=== PATIENT | female | born 1960 ===

== ENCOUNTER 2024-10-25 18:01 | Inpatient (IN) | payer MEDICARE, MEDICAID, SELFPAY ==
--- OUTSIDE RECORDS SUMMARY | 2024-10-25 18:20 | XMS_ITS | Encounter Summary ---
Author Organization [employer] Address [address] [place] [address] Care Team Providers Care [facility]man Name Role Phone Kaylee Hyde MD Primary Care Provider [phone] Reason for Visit * Reason Comments Altered Mental Status Encounter Details Date Type Department Care Team (Late st Contact Info) Description 10/25/2024 10:22 AM EDT - 10/25/2024 5:40 PM EDT Emergency [facility] Emergency [address] [place] [id number] Felipa Martinez, [address] [place] [address] Alexei Rodriguez MD [address] [place] [address] Altered mental status, unspecified altered mental status type (Primary Dx); Delusions (CMS/HCC); Psychiatric complaint Discharge Disposition: Another Health Care Institution Not Defined Social History Tobacco Use Types Packs/Day Years Used Date Smoking Tobacco: Never Assessed Comments Unknown Sex and Gender Information Value Date Recorded Sex Assigned at Female 10/25/2024 11:00 AM EDT Legal Sex Female 9:03 AM EST Gender Identity Female 10/25/2024 11:00 AM EDT Sexual Orientation Straight 10/25/2024 11 :00 AM EDT documented as of this encounter Last Filed Vital Signs Vital Sign Reading Time Taken Comments Blood Pressure 154/98 10/25/2024 5:39 PM EDT Pulse 105 10/25/2024 5:39 PM EDT Temperature 36.5 ??C (97.7 ??F) 10/25/2024 10:55 AM E DT Respiratory Rate 18 10/25/2024 5:39 PM EDT Oxygen Saturation 100% 10/25/2024 5:39 PM EDT Inhaled Oxygen Concentration - - Weight 65.8 kg (145 lb) 10/25/2024 10:55 AM EDT Height 144.8 cm (4' 9 ) 10/25/2024 10:55 AM EDT Body Mass Index 31.38 10/25/2024 10:55 AM EDT documented in this encounter Functional Status * Are you deaf or do you have serious difficulty hearing? Answer Date of Assessment Author No 10/25/2024 10:32 AM EDT David Rodriguez RN * Are you blind or do you have serious difficulty seeing, even when wearing glasses? Answer Date of Assessment Author No 10/25/2024 10:32 AM EDT David Rodriguez RN * Do you have serious difficulty walking or climbing stairs? Answer Date of Assessment Author No 10/25/2024 10:32 AM PRABHAKART David Rodriguez RN * Do you have serious difficulty dressing or bathing? Answer Date of Assessment Author No 10/25/2024 10:32 AM EDT David Rodriguez RN * Because of a physical, mental, or emotional condition, do you have serious difficulty doing errandsalone such as visiting the doctor? Answer Date of Assessment Author No 10/25/2024 10:32 AM David Cardenas RN documented as of this encounter Mental Status * Because of a physical, mental, or emotional condition, do you have serious difficulty concentrating, remembering, or making decisions? (5 years old or older) Answer Entry Date Author No 10/25/2024 10:32 AM David Cardenas RN documented in this encounter Medications at Time of Discharge acetaminophen (TYLENOL) 325 mg tablet Take 1,000 mg by mouth every 8 (eight) hours if needed for mild pain or moderate pain. 06/25/2017 cholestyramine (QUESTRAN) 4 gram packet Take 1 packet (4 g total) by mouth 1 (one) time each day. 09/21/2024 clonazePAM (KlonoPIN) 0.5 mg disintegrating tablet Take 1 tablet (0.5 mg total) by mouth 2 (two) times a day. Max Daily Amount: 1 mg escitalopram (LEXAPRO) 5 mg tablet Take 1 tablet (5 mg total) by mouth 1 (one) time each day. 09/21/2024 fenofibrate (TRICOR) 48 mg tablet Take 1 tablet (48 mg total) by mouth 1 (one) time each day. 09/21/2024 OLANZapine (ZyPREXA ZYDIS) 5 mg disintegrating tablet Take 1 tablet (5 mg total) by mouth 2 (two) times a day. 09/21/2024 simvastatin (ZOCOR) 10 mg tablet Take 1 tablet (10 mg total) by mouth at bedtime. topiramate (TOPAMAX) 25 mg tablet Take 1 tablet (25 mg total) by mouth 2 (two) times a day. 09/29/2024 documented as of this encounter Discharge Disposition Disposition Code Departure Means Destination Comment s Another Health Care Institution Not Defined documented in this encounter Progress Notes * Faviola Batista RN - 10/25/2024 4:45 PM EDT Nurse to nurse report given to receiving nurse Billie with [facility] M[facility]. * Alina Oleary - 10/25/2024 4:07 PM EDT Patient accepted to [facility], unit M5, by Dr Alvaro Cage for today 10/25/24; arrival 6pm. * Alexei Rodriguez MD - 10/25/2024 3:23 PM EDT ED Course as of 10/25/24 1613 Mon Oct 25, 2024 1239 63-year-old female presented hospital today for evaluation of altered mentation. Patient was found roaming the hallway in the apartment. Patient was sent in by [facility] team on scene. Patient is currently on section. Will obtain psychiatric lab work for the patient to assess for any signs of metabolic cause of her mentation. However on my exam I suspect this is purely psychiatric in nature. Patient appears to be delusional however she does appear to be appropriate to me. Her story does not make sense. There is a lot of contradicting part in her stories. I am unsure whether her story is true or not. Will have the crisis team evaluated patient at this time. [TC] 1352 Patient CBC is unremarkable. Tylenol was negative. Patient chemistry did show mild transaminitis. Patient UA did not show any signs of UTI. Drug screen is negative. Crisis has evaluated patient and recommend admission for involuntary inpatient psychiatric care. Patient will be held here pending bed search. [TC] 1522 I, Dr. Josiah Rodriguez, have received signout for this patient from Dr. Rojas at 1500 hrs. The patientis currently pending inpatient psychiatric bed search. No issues during my shift. Anticipate sign out to Dr. Pelon Whitfield at 2300 hrs. [MG] 1612 Patient excepted to [facility] for 1800 today. [MG] ED Course User Index [MG] Alexei Rodriguez MD [TC] Felipa Martinez, DO Clinical Impressions as of 10/25/24 1613 Altered mental status, unspecified altered mental status type Delusions (CMS/HCC) Psychiatric complaint Send to Specialty Department 1. Altered mental status, unspecified altered mental status type 2. Delusions (CMS/HCC) 3. Psychiatric complaint Procedures Alicia Saleem * Faviola Batista RN - 10/25/2024 2:21 PM EDT Contacted [facility] as med rec not received, med list to be re faxed to [phone] * Bianka Villaseñor NP - 10/25/2024 1:47 PM EDT Psychiatry Initial Intake Alicia Saleem,is a 63-year-old female history of schizoaffective disorder and delusions presentedto the ER for evaluation of psychiatric evaluation. Patient is placed on section 12 by N. Patientwas found by neighbors are roaming the halls in the buildings. Patient has been intermittent confused. And rambling and not making sense. Denies SI denies HI. Patient has history of schizoaffective disorder and hyperlipidemia. On evaluation patient stated that her daughter was roaming the [place] and causing the issue it was not her. She stated she was waiting in [place] for her visiting nurse to come to give her her medications. However it is noted that patient daughter is in a psych facility at this time. Patient is anxious about her cats at home. Patient states that she does not think she needs to be here this was a misunderstanding. She is denies any SI HI or any hallucinations at this time. Patientjanes state that she does have a house outside of here she recently bought with her back in August. They are taking care of orphan kids at this house. Subjective 10/25/2024 I was outside during the night with my 11 bags of clothes and toys to wait for my and my nurse to bring to the orphans in [address] was my first house HPI: Ms Saleem reports discharge On 's Day after being in the hospital for a year. I was so happy. My daughter got so emotional that I was home she was brought to the hospital . Reports medication compliance the nurse comes I take them in the morning and the night plus the orange drink Current Medications: Scheduled Meds: Continuous Infusions: PRN Meds: Stressors: daughter psychiatrically hospitalized Past Psychiatric History: Previous therapy: yes Previous psychiatric treatment and medication trials: yes - multiple. Per EHR Depakote had been stopped due to LFT's elevation Previous psychiatric hospitalizations: yes - multiple. Most recently [facility] Previous diagnoses: yes - schizoaffective Previous suicide attempts: no History of violence: patient points to scar on left forearm that was during one of my angry spells, that was a long time ago, 24 years ago. I don't do that anymore Currently in treatment with N. Education: some high school Other pertinent history: Legal Depression screening was performed with standardized tool: Yes - No Depression Substance Abuse History: Recreational drugs: none Use of alcohol: denied Use of caffeine: denies use Tobacco use: no Legal consequences of chemical use: no Psychiatric Review Of Systems: Sleep: yes, I was up all night waiting for my Appetite changes: no Weight changes: no Energy: yes, noted wandering in hallways and in the street Interest/pleasure/anhedonia: no Somatic symptoms: no Anxiety/panic: no Guilty/hopeless: I don't want to go to the hospital again, I was there for a year. I love my home Self-injurious behavior/risky behavior: yes, per reports opening neighbor's doors. Walking in streets, telling strangers she has money to give them Any drugs: no Alcohol: no Mental Status Exam: General Observations Appearance and Build: older than stated age and unkempt Demeanor: Average Eye Contact: Average Activity: Average Speech: rapid Behavior: impulsive Mood: labile Affect: labile Thought Process: flight of ideas, loose associations, and tangential Thought Content: Delusions: bizarre and content regarding buying a home in [place] Other: ideas of reference Self Abuse: none reported Aggressive: none reported Cognition: Impairment of: attention/concentration and ability to abstract Intelligence Estimate: boarderline Sensorium/Orientation: person and place Perception: Hallucinations: none reported Other: none reported Insight/Judgment: impaired due to delusional content Elaboration of Positive Mental Status Findings: Ms Saleem with persistent/ increasing delusional content. Patient found with bags of belongings in the hallway Reports patient wandering in building opening neighbor doors. In the street various hours of the day. Physical/Somatic Complaints The patient lists: no physical complaints. Functioning in Relationships: Spouse/partner: Not Lives with daughter various reports of conflictual relationship have been presented Peers: denies Employers: denies Other Pertinent Information Per report sister has been actively seeking guardianship Lab Results: Results for orders placed or performed during the hospital encounter of 10/25/24 Drug abuse screen 8a panel, urine Collection Time: 10/25/24 10:48 AM Result Value Ref Range Amphetamine Screen, Ur Negative Negative Barbiturate Screen, Ur Negative Negative Benzodiazepine Screen, Ur Negative Negative Cocaine Screen, Ur Negative Negative Opiate Screen, Ur Negative Negative Cannabinoid (THC) Screen, Ur Negative Negative Oxycodone Screen, Ur Negative Negative Fentanyl, Ur Negative Negative Buprenorphine screen, urine Collection Time: 10/25/24 10:48 AM Result Value Ref Range Buprenorphine Screen Urine Negative Negative Phencyclidine, urine Collection Time: 10/25/24 10:48 AM Result Value Ref Range PCP Scrn, Ur Negative Negative Methadone, urine Collection Time: 10/25/24 10:48 AM Result Value Ref Range Methadone Screen, Urine Negative Negative Urinalysis with reflex microscopic and culture Collection Time: 10/25/24 10:48 AM Result Value Ref Range Specific [place] Urine 1.018 1.003 - 1.030 pH, Urine 5.5 5.5, 6.0, 6.5, 7.0 pH Leukocytes, Urine 2+ (A) Negative Nitrite, Urine Negative Negative Protein, Urine Negative mg/dL Glucose, Urine Negative mg/dL Ketones, Urine Trace mg/dL Urobilinogen, Urine 0.2 mg/dL Bilirubin, Urine Negative Negative Blood, Urine Negative Negative RBC, Urine 0.1 0 - 4 /HPF WBC, Urine 32.3 (H) 0 - 4 /HPF Squamous Epithelial, Urine 53 0 - 60 /LPF Non-Squamous Epithelial, Urine Rare Transitional epithelial cells. /LPF Bacteria, Urine Negative Negative /HPF Hyaline Casts, Urine 4.8 (H) 0 - 3 /LPF Mucus, Urine Moderate None /HPF Stone urine culture tube Collection Time: 10/25/24 10:48 AM Result Value Ref Range Extra Tube Hold for add-ons. ECG 12 lead Collection Time: 10/25/24 11:00 AM Result Value Ref Range Ventricular Rate ECG 71 BPM Atrial Rate 71 BPM P-R Interval 150 ms QRS Duration 82 ms Q-T Interval 402 ms QTc 436 ms P Wave Burnside 68 degrees R Burnside 75 degrees T Burnside 70 degrees ECG Interpretation Normal sinus rhythm Normal ECG When compared with ECG of 16-JUN-2023 19:48, No significant change was found Comprehensive metabolic panel Collection Time: 10/25/24 11:30 AM Result Value Ref Range Sodium 141 133 - 145 mmol/L Potassium 4.6 3.5 - 5.5 mmol/L Chloride 111 (H) 96 - 110 mmol/L CO2 23 21 - 32 mmol/L Anion Gap 7 3 - 11 Glucose 101 (H) 70 - 100 mg/dL BUN 15 5 - 25 mg/dL Creatinine 1.13 (H) 0.50 - 1.10 mg/dL eGFR 55 (L) >=60 mL/min/1.73m2 BUN/Creatinine Ratio 13.3 Calcium 9.7 8.5 - 10.5 mg/dL AST (SGOT) 99 (H) 10 - 42 unit/L ALT (SGPT) 89 (H) 10 - 60 unit/L Alkaline Phosphatase 144 (H) 42 - 121 unit/L Total Protein 6.8 6.0 - 8.0 g/dL Albumin 4.0 3.2 - 5.0 g/dL Total Bilirubin 0.6 0.0 - 1.4 mg/dL Ethanol Collection Time: 10/25/24 11:30 AM Result Value Ref Range Ethanol Level <3 0 - 10 mg/dL Acetaminophen level Collection Time: 10/25/24 11:30 AM Result Value Ref Range Acetaminophen Level <2.0 (L) 10.0 - 30.0 mcg/mL Salicylate level Collection Time: 10/25/24 11:30 AM Result Value Ref Range Salicylate Level <1.7 (L) 2.0 - 29.0 mg/dL CBC auto differential Collection Time: 10/25/24 11:30 AM Result Value Ref Range WBC 6.9 4.8 - 10.8 K/mcL RBC 4.20 3.80 - 4.80 M/mcL Hemoglobin 12.1 11.5 - 16.0 g/dL Hematocrit 37.7 35.0 - 47.0 % MCV 90.0 79.0 - 98.0 FL MCH 28.9 27.0 - 32.0 pcg MCHC 32.1 32.0 - 37.0 g/dL RDW 14.3 11.0 - 15.0 % Platelets 257 130 - 400 K/mcL MPV 10.4 7.0 - 11.0 FL NRBC 0.0 <1.0 % NRBC Absolute 0.00 <0.10 K/mcL Neutrophils Relative 68.2 % Lymphocytes Relative 16.4 % Monocytes Relative 9.7 % Eosinophils Relative 4.8 % Basophils Relative 0.3 % Immature Granulocytes Relative 0.6 % Neutrophils Absolute 4.69 1.50 - 7.00 K/mcL Lymphocytes Absolute 1.13 1.00 - 5.00 K/mcL Monocytes Absolute 0.67 0.20 - 1.00 K/mcL Eosinophils Absolute 0.33 0.00 - 0.50 K/mcL Basophils Absolute 0.02 0.00 - 0.20 K/mcL Immature Granulocytes Absolute 0.04 (H) 0.00 - 0.03 K/mcL Medications: No current facility-administered medications for this encounter. No current outpatient medications on file. Diagnosis/Assessment/Plan: Schizoaffective disorder Ms Saleem noted with delusional content, diminished ability to care for herself in the community, Recommendation 1) Collaborate with behavioral health team for inpatient psychiatric hospitalization for patient safety mood stabilization and medication management Bianka Kasi, MANAGER NEWS * Faviola Batista RN - 10/25/2024 1:41 PM EDT Contacted [facility] to complete med rec, med list to be faxed to [phone]. * Faviola Batista RN - 10/25/2024 1:25 PM EDT Patient does not have a per patients sister. Please see consult note for details. * Karla Rodriguez RN - 10/25/2024 11:07 AM EDT Patient states she wants no family memebers to have any information about her besides her and family welfare social work professor states ok to give info over the phone. Pt paranoid and rambling Karla Rodriguez RN 10/25/24 1108 * Karla Rodriguez RN - 10/25/2024 10:22 AM EDT Biba from home section 12 by [facility], neighbors called ems for patient roaming halls of building for 24hours. A+ox3 but intermittent confusion per ems. Rambling not making sense. Denies all complaints. Denies SI, HI Hx schizoeffective, hyperlipid * Felipa Martinez DO - 10/25/2024 10:09 AM EDT Emergency Medicine Note Patient Name: Alicia Saleem Initial Evaluation: 10/25/2024 : 1960 Patient's PCP: Kaylee Hyde MD Emergency Physician: Felipa Martinez, DO History of Present Illness Chief Complaint: Chief Complaint Patient presents with ??? Altered Mental Status HPI: This is a 63-year-old female history of delusions presented to the ER today for evaluation of psychiatric evaluation. Patient is placed on section 12 by N. Patient was found by neighbors are roaming the halls in the buildings. Patient has been intermittent confused. And rambling and not making sense. Denies SI denies HI. Patient has history of schizoaffective disorder and hyperlipidemia. On evaluation patient stated that her daughter was roaming the [place]ons[place]ves and causing the issue it was not her. She stated she was waiting a [place] for her visiting nurse to come to give her her medications.However it is noted that patient daughter is in a psych facility at this time. Patient is anxious about her cats at home. Patient states that she does not think she needs to be here dose was a misunderstanding. She is denies any SI HI or any hallucinations at this time. Patientdoes stated that she does have a house outside of here she recently bought with her back inFebruary. They are taking care of orphan kids at this house. She has no medical complaints at this time. ROS: I have performed a ROS with the pertinent positives and negatives documented in the history ofpresent illness. Previous History No past medical history on file. No past surgical history on file. No family history on file. has No Known Allergies. No current facility-administered medications on file prior to encounter. No current outpatient medications on file prior to encounter. Physical Exam ED Triage Vitals [10/25/24 1055] Temp Heart Rate Resp BP 36.5 ??C (97.7 ??F) 80 18 105/58 SpO2 Temp Source Heart Rate Source Patient Position 100 % Oral Monitor Lying BP Location FiO2 (%) Left arm -- General: Pleasant, no distress, interacting appropriately Head: Normacephalic, atraumatic ENT: oral mucosa moist, neck supple, no tracheal deviation Cardiovascular: regular rate, regular rhythm, no murmurs, rubbing, gallops Respiratory: CTAB, no wheeze, rales, rhonchi Gastrointestinal: Soft, non distended, non tender, non guarding Extremities: No limb pain or swelling, no calf tenderness Neurological: Awake and alert, no facial droop noted Skin: Warm and dry Psychiatric: Appears to have some delusions. Denies SI and HI. Unsure if the information she has provided me is accurate. However they are inconsistent with each other and does not make sense. Results Labs Reviewed COMPREHENSIVE METABOLIC PANEL - Abnormal Result Value Sodium 141 Potassium 4.6 Chloride 111 (*) CO2 23 Anion Gap 7 Glucose 101 (*) BUN 15 Creatinine 1.13 (*) eGFR 55 (*) BUN/Creatinine Ratio 13.3 Calcium 9.7 AST (SGOT) 99 (*) ALT (SGPT) 89 (*) Alkaline Phosphatase 144 (*) Total Protein 6.8 Albumin 4.0 Total Bilirubin 0.6 ACETAMINOPHEN LEVEL - Abnormal Acetaminophen Level <2.0 (*) SALICYLATE LEVEL - Abnormal Salicylate Level <1.7 (*) CBC WITH AUTO DIFFERENTIAL - Abnormal WBC 6.9 RBC 4.20 Hemoglobin 12.1 Hematocrit 37.7 MCV 90.0 MCH 28.9 MCHC 32.1 RDW 14.3 Platelets 257 MPV 10.4 NRBC 0.0 NRBC Absolute 0.00 Neutrophils Relative 68.2 Lymphocytes Relative 16.4 Monocytes Relative 9.7 Eosinophils Relative 4.8 Basophils Relative 0.3 Immature Granulocytes Relative 0.6 Neutrophils Absolute 4.69 Lymphocytes Absolute 1.13 Monocytes Absolute 0.67 Eosinophils Absolute 0.33 Basophils Absolute 0.02 Immature Granulocytes Absolute 0.04 (*) URINALYSIS WITH REFLEX MICROSCOPIC AND CULTURE - Abnormal Specific [place] Urine 1.018 pH, Urine 5.5 Leukocytes, Urine 2+ (*) Nitrite, Urine Negative Protein, Urine Negative Glucose, Urine Negative Ketones, Urine Trace Urobilinogen, Urine 0.2 Bilirubin, Urine Negative Blood, Urine Negative RBC, Urine 0.1 WBC, Urine 32.3 (*) Squamous Epithelial, Urine 53 Non-Squamous Epithelial, Urine Rare Transitional epithelial cells. Bacteria, Urine Negative Hyaline Casts, Urine 4.8 (*) Mucus, Urine Moderate ETHANOL - Normal Ethanol Level <3 DRUG ABUSE SCREEN 8A PANEL, URINE - Normal Amphetamine Screen, Ur Negative Barbiturate Screen, Ur Negative Benzodiazepine Screen, Ur Negative Cocaine Screen, Ur Negative Opiate Screen, Ur Negative Cannabinoid (THC) Screen, Ur Negative Oxycodone Screen, Ur Negative Fentanyl, Ur Negative Narrative: Assay cutoffs: Amphetamines 1000 ng/mL Barbiturates 200 ng/mL Benzodiazepines 200 ng/mL Cocaine 300 ng/mL Fentanyl 1 ng/mL Opiates 300 ng/mL Oxycodone 100 ng/mL THC 50 ng/mL Semi-quantitative assay for screening purposes only. Unconfirmed screening result should not be used for non-medical purposes. *ALTERNATE METHOD CONFIRMATION DONE UPON REQUEST ONLY* BUPRENORPHINE SCREEN, URINE - Normal Buprenorphine Screen Urine Negative Narrative: Assay cutoff 5 ng/mL Semi-quantitative assay for screening purposes only. Unconfirmed screening result should not be used for non-medical purposes. *ALTERNATE METHOD CONFIRMATION DONE UPON REQUEST ONLY* PHENCYCLIDINE, URINE - Normal PCP Scrn, Ur Negative METHADONE SCREEN, URINE - Normal Methadone Screen, Urine Negative CULTURE URINE CBC AND DIFFERENTIAL Narrative: The following orders were created for panel order CBC and differential. Procedure Abnormality Status --------- ------ CBC auto differential[[id number]] Abnormal Final result Please view results for these tests on the individual orders. URINALYSIS WITH REFLEX MICROSCOPIC AND CULTURE Narrative: The following orders were created for panel order Urinalysis with reflex microscopic and culture. Procedure Abnormality Status --------- ------ Urinalysis with reflex m...[[id number]] Abnormal Final result Stone urine culture tube[[id number]] Final result Please view results for these tests on the individual orders. Abnormal Labs Reviewed COMPREHENSIVE METABOLIC PANEL - Abnormal; Notable for the following components: Result Value Chloride 111 (*) Glucose 101 (*) Creatinine 1.13 (*) eGFR 55 (*) AST (SGOT) 99 (*) ALT (SGPT) 89 (*) Alkaline Phosphatase 144 (*) All other components within normal limits ACETAMINOPHEN LEVEL - Abnormal; Notable for the following components: Acetaminophen Level <2.0 (*) All other components within normal limits SALICYLATE LEVEL - Abnormal; Notable for the following components: Salicylate Level <1.7 (*) All other components within normal limits CBC WITH AUTO DIFFERENTIAL - Abnormal; Notable for the following components: Immature Granulocytes Absolute 0.04 (*) All other components within normal limits URINALYSIS WITH REFLEX MICROSCOPIC AND CULTURE - Abnormal; Notable for the following components: Leukocytes, Urine 2+ (*) WBC, Urine 32.3 (*) Hyaline Casts, Urine 4.8 (*) All other components within normal limits No orders to display I have discussed the incidental/abnormal imaging and/or lab abnormalities with the patient and haveinstructed them the need for further evaluation and workup with their primary care doctor. I have provided the patient with a paper copy of the abnormality. The laboratory results, imaging results and other diagnostic exam results were reviewed in the EMR. EKG Interpretation Critical Care Time None Medical Decision Making Medications - No data to display ED Course as of 10/25/24 1538 FriOct 25, 2024 1239 63-year-old female presented hospital today for evaluation of altered mentation. Patient was found roaming the hallway in the apartment. Patient was sent in by [facility] team on scene. Patient is currently on section. Will obtain psychiatric lab work for the patient to assess for any signs of metabolic cause of her mentation. However on my exam I suspect this is purely psychiatric in nature. Patient appears to be delusional however she does appear to be appropriate to me. Her story does not make sense. There marlee lot of contradicting part in her stories. I am unsure whether her story is true or not. Will havethe crisis team evaluated patient at this time. [TC] 1352 Patient CBC is unremarkable. Tylenol was negative. Patient chemistry did show mild transaminitis. Patient UA did not show any signs of UTI. Drug screen is negative. Crisis has evaluated patient and recommend admission for involuntary inpatient psychiatric care. Patient will be held here pending bed search. [TC] 1522 I, Dr. Josiah Rodriguez, have received signout for this patient from Dr. Rojas at 1500 hrs. The patientis currently pending inpatient psychiatric bed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 06/25/2017 added in this encounter Active and Recently Administered Medications Times are shown in EDT. Scheduled Medication Order 10/23/2024 10/24/2024 10/25/2024 atorvastatin (LIPITOR) tablet 10 mg 10 mg, oral, Nightly, First dose on Fri10/25/24 at 2100 2100 (Due) cholestyramine (QUESTRAN) 4 gram packet 4 g 4 g, oral, Daily, First dose on Fri10/25/24 at 1530, If possible, give other medications 1 hour before or 4 hours after cholestyramine. 1726 (Given - Provid er: Faviola Batista RN) clonazePAM (KlonoPIN) disintegrating tablet 0.5 mg 0.5 mg, oral, 2 times daily, First dose on Fri10/25/24 at 1438, HAZARDOUS Drug Precautions - Low Risk (Category A/NIOSH Group 3) Reproductive Risk Only: - Single pair of ASTM standard [id number] certified chemotherapy gloves - Eye protection (goggles or face shield) required only with a potential for facial contact (i.e. concern for spitting or vomiting of the dose during or after administration) - Staff at reproductive risk (actively trying to conceive, or may be become , and ): chemo certified gown and an N95 respirator required when crushing meds (crushing of tabs allowed only in closed pouches) or opening of capsules only for allowable dosage forms 1458 (Given - Provid er: Faviola Batista RN)2100 (Due) escitalopram (LEXAPRO) tablet 5 mg 5 mg, oral, Daily, First dose on Fri10/25/24 at 1438 1457 (Given - Provid er: Faviola Batista RN) fenofibrate (LOFIBRA) tablet 54 mg 54 mg, oral, Daily, First dose on Fri10/26/24 at 0900, Do not crush, chew, or split. OLANZapine (ZyPREXA ZYDIS) disintegrating tablet 5 mg 5 mg, oral, 2 times daily, First dose on Fri10/25/24 at 1438, Tablets should NOT be swallowed whole, chewed, broken, or crushed. Place tablet in mouth, allow to dissolve, and then swallow saliva with or without water. 1457 (Given - Provid er: Faviola Batista RN)2100 (Due) topiramate (TOPAMAX) tablet 25 mg 25 mg, oral, 2 times daily, First dose on Fri10/25/24 at 1438, HAZARDOUS Drug Precautions - Low Risk (Category A/NIOSH Group 3) Reproductive Risk Only: - Do NOT split, crush, or open dosage units - Single pair of ASTM standard [id number] certified chemotherapy gloves - Eye protection (goggles or face shield) required only with a potential for facial contact (i.e. concern for spitting or vomiting of the dose during or after administration) 1457 (Given - Provid er: Faviola Batista RN)2100 (Due) PRN Medication Order 10/23/2024 10/24/2024 10/25/2024 acetaminophen (TYLENOL) tablet 1,000 mg 1,000 mg, oral, Every 8 hours PRN, mild pain, moderate pain, Starting on 10/25/24 at 1437 documented in this encounter Orders Medications Ordered That [place] ht Not Have Been Administered Count Last Ordered Date First Ordered Date acetaminophen (TYLENOL) tablet 1,000 mg 1 0 10/25/2024 atorvastatin (LIPITOR) tablet 10 mg 1 10/25 fenofibrate (LOFIBRA) tablet 54 mg 1 2024 Diet Count Last Ordered Date First Orde red Date ADULT DIET 1 10/25/2024 Consult Count Last Ordered Date First Orde red Date IP CONSULT TO RIVET C[facility]ER 1 10/25/2024 Precaution Count Last Ordered Date First Orde red Date SUICIDE PRECAUTIONS 1 10/25/2024 Privilege Level Count Last Ordered Date First O rdered Date PATIENT [employer]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
--- OUTSIDE RECORDS SUMMARY | 2024-10-25 18:20 | XMS_ITS | Clinical Summary ---
Author Organization [facility] Address [address] [place] [address] Phone Care Team Providers Care Truck Shop Supervisor Name Role Phone Kaylee Hyde MD Primary Care Provider [phone] Allergies No known active allergies Medications acetaminophen (TYLENOL) 325 mg tablet Take 1,000 mg by mouth every 8 (eight) hours if needed for mild pain or moderate pain. 7 Active OLANZapine (ZyPREXA ZYDIS) 5 mg disintegrating tablet Take 1 tablet (5 mg total) by mouth 2 (two) times a day. 5 Active cholestyramine (QUESTRAN) 4 gram packet Take 1 packet (4 g total) by mouth 1 (one) time each day. 5 Active escitalopram (LEXAPRO) 5 mg tablet Take 1 tablet (5 mg total) by mouth 1 (one) time each day. 5 Active fenofibrate (TRICOR) 48 mg tablet Take 1 tablet (48 mg total) by mouth 1 (one) time each day. 5 Active topiramate (TOPAMAX) 25 mg tablet Take 1 tablet (25 mg total) by mouth 2 (two) times a day. 5 Active simvastatin (ZOCOR) 10 mg tablet Take 1 tablet (10 mg total) by mouth at bedtime. Active clonazePAM (KlonoPIN) 0.5 mg disintegrating tablet Take 1 tablet (0.5 mg total) by mouth 2 (two) times a day. Max Daily Amount: 1 mg Active Encounters Date Type Department Care Team Description 10/25/2024 10:22 AM EDT - 10/25/2024 5:40 PM EDT Emergency [facility] Emergency [address] [place] [address] Felipa aMrtinez DO Goebel, Mathew, MD Altered mental status, unspecified altered mental status type (Primary Dx); Delusions (CMS/HCC); Psychiatric complaint Discharge Disposition: Another Health Care Institution Not Defined from Last 3 Months Social History Tobacco Use Types Packs/Day Years Used Date Smoking Tobacco: Never Assessed Comments Unknown Sex and Gender Information Value Date Recorded Sex Assigned at Female 10/25/2024 11:00 AM EDT Legal Sex Female 9:03 AM EST Gender Identity Female 10/25/2024 11:00 AM EDT Sexual Orientation Straight 10/25/2024 11 :00 AM EDT Last Filed Vital Signs Vital Sign Reading [...] Mass Index 31.38 10/25/2024 10:55 AM EDT Plan of Treatment Health Maintenance Due Date Last Done Comments Breast Cancer Screening 1960 DTaP,Tdap,and Td Vaccines (1 - Tdap) 12/01/1979 09/01/2020, 05/16/2009 Cervical Cancer Screening: Pap Smear 1981 Pneumococcal Vaccine: 50+ Years (1 of 1 - PCV) 2010 09/05/2015 Zoster Vaccines (1 of 2) 2010 Colorectal Cancer Screening: Colonoscopy 08/26/2023 Depression Screening 08/26/2023 HIV Screening 08/26/2023 Hepatitis C Screening 08/26/2023 Medicare Annual Wellness Visit 08/26/2023 Social Influencers of Health Screening 08/26/2023 COVID-19 Vaccine ( season) 2024 09/08/2021, 12/08/2020, 11/18/2020 Influenza Vaccine (#1) 2024 , 04/23/2023, 06/13/2022, Additional history exists RSV Immunization Patients 60+ Years Old (1 - 1-dose 75+ series) 12/01/2035 HIB Vaccines Aged Out No longer eligi ble based on patient's age to complete this topic HPV Vaccines Aged Out No longer eligi ble based on patient's age to complete this topic Hepatitis A Vaccines Aged Out No long er eligible based on patient's age to complete this topic Hepatitis B Vaccines Aged Out No long er eligible based on patient's age to complete this topic IPV Vaccines Aged Out No longer eligi ble based on patient's age to complete this topic MMR Vaccines Aged Out No longer eligi ble based on patient's age to complete this topic Meningococcal ACWY Vaccine Aged Out N o longer eligible based on patient's age to complete this topic Meningococcal B Vacine Aged Out No lo nger eligible based on patient's age to complete this topic Pneumococcal Vaccine: Pediatrics (0 to 5 Years) and At-Risk Patients (6 to 64 Years) Aged Out 09/05/2015 No longer eligible based on patient's age to complete this topic RSV Immunization Patients Under 20 months Aged Out No longer eligible based on patient's age to complete this topic Varicella Vaccines Aged Out No longer eligible based on patient's age to complete this topic Procedures Procedure Name Priority Date/Time Associated Diagnosis Comments CBC WITH AUTO DIFFERENTIAL STAT 10/25/2024 11:30 AM EDT SALICYLATE LEVEL STAT 10/25/2024 11:3 0 AM EDT ACETAMINOPHEN LEVEL STAT 10/25/2024 1 1:30 AM EDT ETHANOL STAT 10/25/2024 11:30 AM EDT COMPREHENSIVE METABOLIC PANEL STAT 10/25/2024 11:30 AM EDT CBC AND DIFFERENTIAL STAT 10/25/2024 11:30 AM EDT ECG 12-LEAD STAT 10/25/2024 11:00 AM EDT STONE URINE CULTURE TUBE STAT 10/25/2024 10:48 AM EDT URINALYSIS WITH REFLEX MICROSCOPIC AND CULTURE STAT 10/25/2024 10:48 AM EDT URINALYSIS WITH REFLEX MICROSCOPIC AND CULTURE STAT 10/25/2024 10:48 AM EDT METHADONE SCREEN, URINE STAT 10/25/2024 10:48 AM EDT PHENCYCLIDINE, URINE STAT 10/25/2024 10:48 AM EDT BUPRENORPHINE SCREEN, URINE STAT 10/25/2024 10:48 AM EDT DRUG ABUSE SCREEN 8A PANEL, URINE STAT 10/25/2024 10:48 AM EDT from Last 3 Months Results * (ABNORMAL) CBC auto differential (10/25/2024 11:30 AM EDT) [facility] WBC 6.9 4.8 - 10.8 K/mcL LAB HEMETOLOGY METHOD 10/25/2024 11:52 AM EDT [facility] RBC 4.20 3.80 - 4.80 M/mcL LAB HEMETOLOGY METHOD 10/25/2024 11:52 AM EDT [facility] Hemoglobin 12.1 11.5 - 16.0 g/dL LAB HEMETOLOGY METHOD 10/25/2024 11:52 AM EDT [facility] Hematocrit 37.7 35.0 - 47.0 % LAB HEMETOLOGY METHOD 10/25/2024 11:52 AM EDT [facility] MCV 90.0 79.0 - 98.0 FL LAB [facility] MCH 28.9 27.0 - 32.0 pcg LAB HEMETOLOGY METHOD 10/25/2024 11:52 AM EDT [facility] MCHC 32.1 32.0 - 37.0 g/dL LAB HEMETOLOGY METHOD 10/25/2024 11:52 AM [facility] RDW 14.3 11.0 - 15.0 % LAB HEMETOLOGY METHOD 10/25/2024 11:52 AM [facility] Platelets 257 130 - 400 K/mcL LAB HEMETOLOGY METHOD 10/25/2024 11:52 AM [facility] MPV 10.4 7.0 - 11.0 FL LAB HEMETOLOGY METHOD 10/25/2024 11:52 AM [facility] NRBC 0.0 <1.0 % LAB HEMETOLOGY METHOD 10/25/2024 11:52 AM [facility] NRBC Absolute 0.00 <0.10 K/mcL LAB HEMETOLOGY METHOD 10/25/2024 11:52 AM [facility] Neutrophils Relative 68.2 % LAB HEMETOLOGY METHOD 10/25/2024 11:52 AM [facility] Lymphocytes Relative 16.4 % LAB HEMETOLOGY METHOD 10/25/2024 11:52 AM [facility] Monocytes Relative 9.7 % LAB HEMETOLOGY METHOD 10/25/2024 11:52 AM [facility] Eosinophils Relative 4.8 % LAB HEMETOLOGY METHOD 10/25/2024 11:52 AM [facility] Basophils Relative 0.3 % LAB HEMETOLOGY METHOD 10/25/2024 11:52 AM [facility] Immature Granulocytes Relative 0.6 % LAB HEMETOLOGY METHOD 10/25/2024 11:52 AM [facility] Neutrophils Absolute 4.69 1.50 - 7.00 K/mcL LAB HEMETOLOGY METHOD 10/25/2024 11:52 AM [facility] Lymphocytes Absolute 1.13 1.00 - 5.00 K/mcL LAB HEMETOLOGY METHOD 10/25/2024 11:52 AM EDT [facility] Monocytes Absolute 0.67 0.20 - 1.00 K/[facility] LAB HEMETOLOGY METHOD 10/25/2024 11:52 AM EDT [facility] Eosinophils Absolute 0.33 0.00 - 0.50 K/[facility] LAB HEMETOLOGY METHOD 10/25/2024 11:52 AM EDT [facility] Basophils Absolute 0.02 0.00 - 0.20 K/[facility] LAB HEMETOLOGY METHOD 10/25/2024 11:52 AM EDT [facility] Immature Granulocytes Absolute 0.04(H) 0.00 - 0.03 K/[facility] LAB HEMETOLOGY METHOD 10/25/2024 11:52 AM EDT [facility] Blood Venous blood specimen / Unknown Venipuncture / Unknown 10/25/2024 11:30 AM EDT 10/25/2024 11:44 AM EDT us Felipa Degroot Martinez LAB BLOOD ORDERABLES Dinora l Result [facility] [address] [place] [address], * Ethanol (10/25/2024 11:30 AM EDT) Ethanol Level <3 0 - 10 mg/dL LAB CHEMISTRY METHOD 10/25/2024 12:18 PM EDT [facility] Blood Venous blood specimen / Unknown Venipuncture / Unknown 10/25/2024 11:30 AM EDT 10/25/2024 11:44 AM EDT us Felipa Martinez DO LAB BLOOD ORDERABLES Dinora l Result [facility] [address] [place] [address], [place] [phone] * (ABNORMAL) Acetaminophen level (10/25/2024 11:30 AM EDT) Acetaminophen Level <2.0(L) 10.0 - 30.0 mcg/mL LAB CHEMISTRY METHOD 10/25/2024 12:23 PM EDT [facility] Blood Venous blood specimen / Unknown Venipuncture / Unknown 10/25/2024 11:30 AM EDT 10/25/2024 11:44 AM EDT Felipa Martinez LAB BLOOD ORDERABLES Dinora l Result Performing Organization Address [facility]/ZIP Co de Phone Number [facility] [address] [place] [address], [place] [phone] * (ABNORMAL) Salicylate level (10/25/2024 11:30 AM EDT) Salicylate Level <1.7(L) 2.0 - 29.0 mg/dL LAB CHEMISTRY METHOD 10/25/2024 12:18 PM EDT [facility] Blood Venous blood specimen / Unknown Venipuncture / Unknown 10/25/2024 11:30 AM EDT 10/25/2024 11:44 AM EDT Felipa Martinez LAB BLOOD ORDERABLES Dinora l Result [facility] [address] [place] [address], [place] [phone] * (ABNORMAL) Comprehensive metabolic panel (10/25/2024 11:30 AM EDT) Sodium 141 133 - 145 mmol/L LAB CHEMISTRY METHOD 10/25/2024 12:23 PM EDT [facility] Potassium 4.6 3.5 - 5.5 mmol/L LAB CHEMISTRY METHOD 10/25/2024 12:23 PM [facility] Chloride 111(H) 96 - 110 mmol/L LAB CHEMISTRY METHOD 10/25/2024 12:23 PM [facility] CO2 23 21 - 32 mmol/L LAB CHEMISTRY METHOD 10/25/2024 12:23 PM [facility] Anion Gap 7 3 - 11 LAB CHEMISTRY METHOD 10/25/2024 12:23 PM [facility] Glucose 101(H) 70 - 100 mg/dL LAB CHEMISTRY METHOD 10/25/2024 12:23 PM [facility] BUN 15 5 - 25 mg/dL LAB CHEMISTRY METHOD 10/25/2024 12:23 PM [facility] Creatinine 1.13(H) 0.50 - 1.10 mg/dL LAB CHEMISTRY METHOD 10/25/2024 12:23 PM [facility] eGFR 55(L) >=60 mL/min/1. 73m2 LAB CHEMISTRY METHOD 10/25/2024 12:23 PM [facility] Comment:Calculation based on the??Chronic Kidney Disease Epidemiology Collaboration (CKD-EPI) equation refit??without adjustment for race. BUN/Creatinine Ratio 13.3 LAB CHEMISTRY METHOD 10/25/2024 12:23 PM [facility] Calcium 9.7 8.5 - 10.5 mg/dL LAB CHEMISTRY METHOD 10/25/2024 12:23 PM [facility] AST (SGOT) 99(H) 10 - 42 unit/L LAB CHEMISTRY METHOD 10/25/2024 12:23 PM [facility] ALT (SGPT) 89(H) 10 - 60 unit/L LAB CHEMISTRY METHOD 10/25/2024 12:23 PM [facility] Alkaline Phosphatase 144(H) 42 - 121 unit/L LAB CHEMISTRY METHOD 10/25/2024 12:23 PM [facility] Total Protein 6.8 6.0 - 8.0 g/dL LAB CHEMISTRY METHOD 10/25/2024 12:23 PM EDT [facility] Albumin 4.0 3.2 - 5.0 g/dL LAB CHEMISTRY METHOD 10/25/2024 12:23 PM [facility] Total Bilirubin 0.6 0.0 - 1.4 mg/dL LAB CHEMISTRY METHOD 10/25/2024 12:23 PM T [facility] Blood Venous blood specimen / Unknown Venipuncture / Unknown 10/25/2024 11:30 AM EDT 10/25/2024 11:44 AM EDT us Felipa Martinez DO LAB BLOOD ORDERABLES Dinora l Result [facility] [address] [place] [address], [place] [phone] * (ABNORMAL) Urinalysis with reflex microscopic and culture (10/25/2024 10:48 AM EDT) Specific [place] Urine 1.018 1.003 - 1.030 10/25/2024 11:43 AM [facility] pH, Urine 5.5 5.5, 6.0, 6.5, 7.0 pH 10/25/2024 11:43 AM [facility] Leukocytes, Urine 2+(A) Negative 10/25/2024 11:43 AM [facility] Nitrite, Urine Negative Negative 10/25/2024 11:43 AM [facility] Protein, Urine Negative mg/dL 10/25/2024 11:43 AM [facility] Glucose, Urine Negative mg/dL 10/25/2024 11:43 AM [facility] Ketones, Urine Trace mg/dL 10/25/2024 11:43 AM [facility] Urobilinogen , Urine 0.2 mg/dL 10/25/2024 11:43 AM [facility] Bilirubin, Urine Negative Negative 10/25/2024 11:43 AM [facility] Blood, Urine Negative Negative 10/25/2024 11:43 AM [facility] RBC, Urine 0.1 0 - 4 /HPF LAB URINALYSIS - AUTOMATED METHOD 10/25/2024 11:43 AM [facility] WBC, Urine 32.3(H) 0 - 4 /HPF LAB URINALYSIS - AUTOMATED METHOD 10/25/2024 11:43 AM [facility] Squamous Epithelial, Urine 53 0 - 60 /LPF LAB URINALYSIS - AUTOMATED METHOD 10/25/2024 11:43 AM [facility] Non-Squamous Epithelial, Urine Rare Transitional epithelial cells. /LPF 10/25/2024 11:43 AM [facility] Bacteria, Urine Negative Negative /HPF LAB URINALYSIS - AUTOMATED METHOD 10/25/2024 11:43 AM [facility] Hyaline Casts, Urine 4.8(H) 0 - 3 /LPF LAB URINALYSIS - AUTOMATED METHOD 10/25/2024 11:43 AM [facility] Mucus, Urine Moderate None /HPF 10/25/2024 11:43 AM [facility] Urine Urine specimen obtained by clean catch procedure / Unknown Non-blood Collection / Unknown 10/25/2024 10:48 AM EDT 10/25/2024 10:58 AM EDT us Felipa Martinez DO LAB URINE ORDERABLES Dinora l Result [facility] [address] [place] [address], [place] [phone] * Stone urine culture tube (10/25/2024 10:48 AM EDT) Extra Tube Hold for add-ons. 10/25/2024 12:02 PM EDT [facility] Comment:Auto resulted. Urine Urine specimen obtained by clean catch procedure / Unknown Non-blood Collection / Unknown 10/25/2024 10:48 AM EDT 10/25/2024 10:58 AM EDT us Felipa Degroot Martinez DO LAB URINE ORDERABLES Dinora l Result [facility] [address] [place] [address], * Drug abuse screen 8a panel, urine (10/25/2024 10:48 AM EDT) Pathologist [facility] Amphetamine Screen, Ur Negative Negative LAB CHEMISTRY METHOD 10/25/2024 11:36 AM EDT [facility] Comment:Certain OTC medicati ons containing ephedrine, phenylephrine, pseudoephedrine and phenylpropanolamine can cause false positive results. Barbiturate Screen, Ur Negative Negative LAB CHEMISTRY METHOD 10/25/2024 11:36 AM EDT [facility] Benzodiazepine Screen, Ur Negative Negative LAB CHEMISTRY METHOD 10/25/2024 11:36 AM EDT [facility] Cocaine Screen, Ur Negative Negative LAB CHEMISTRY METHOD 10/25/2024 11:36 AM EDT [facility] Opiate Screen, Ur Negative Negative LAB CHEMISTRY METHOD 10/25/2024 11:36 AM [facility] Cannabinoid (THC) Screen, Ur Negative Negative LAB CHEMISTRY METHOD 10/25/2024 11:36 AM [facility] Comment:Specimens from patie nts taking pantoprazole sodium (Protonix) have been shown to produce false positive results. Oxycodone Screen, Ur Negative Negative LAB CHEMISTRY METHOD 10/25/2024 11:36 AM EDT [facility] Fentanyl, Ur Negative Negative LAB CHEMISTRY METHOD 10/25/2024 11:36 AM EDT [facility] Urine Urine specimen obtained by clean catch procedure / Unknown Non-blood Collection / Unknown 10/25/2024 10:48 AM EDT 10/25/2024 10:58 AM EDT Narrative [facility] - 10/25/2024 11:36 AM EDT [...] DO LAB URINE ORDERABLES Dinora heather Result [facility] [address] [place] [address], * Buprenorphine screen, urine (10/25/2024 10:48 AM EDT) [facility] Buprenorphine Screen Urine Negative Negative LAB CHEMISTRY METHOD 10/25/2024 11:36 AM EDT [facility] Urine Urine specimen obtained by clean catch procedure / Unknown Non-blood Collection / Unknown 10/25/2024 10:48 AM EDT 10/25/2024 10:58 AM EDT Narrative [facility] - 10/25/2024 11:36 AM EDT Assay cutoff 5 ng/mL Semi-quantitative assay for screening purposes only. Unconfirmed screening result should not be used for non-medical purposes. *ALTERNATE METHOD CONFIRMATION DONE UPON REQUEST ONLY* us Felipa Martinez LAB URINE ORDERABLES Dinora l Result Performing Organization Address [facility] Co de Phone Number [facility] [address] [place] [address], [place] [phone] * Methadone, urine (10/25/2024 10:48 AM EDT) Methadone Screen, Urine Negative Negative LAB CHEMISTRY METHOD 10/25/2024 11:36 AM EDT [facility] Comment: Assay cutoff 300 ng/mL Semi-quantitative assay for screening purposes only. Unconfirmed screening result should not be used for non-medical purposes. *ALTERNATE METHOD CONFIRMATION DONE UPON REQUEST ONLY* Urine Urine specimen obtained by clean catch procedure / Unknown Non-blood Collection / Unknown 10/25/2024 10:48 AM EDT 10/25/2024 10:58 AM EDT Felipa Martinez LAB URINE ORDERABLES Dinora l Result Performing Organization Address [facility] de Phone Number [facility] [address] [place] [address], [place] [phone] * Phencyclidine, urine (10/25/2024 10:48 AM EDT) PCP Scrn, Ur Negative Negative LAB CHEMISTRY METHOD 10/25/2024 11:36 AM EDT [facility] Comment: Assay cutoff 25 ng/mL Semi-quantitative assay for screening purposes only. Unconfirmed screening result should not be used for non-medical purposes. *ALTERNATE METHOD CONFIRMATION DONE UPON REQUEST ONLY* Urine Urine specimen obtained by clean catch procedure / Unknown Non-blood Collection / Unknown 10/25/2024 10:48 AM EDT 10/25/2024 10:58 AM EDT us Felipa Degroot Martinez DO LAB URINE ORDERABLES Dinora l Result [facility] [address] [place] [address], from Last 3 Months Insurance MEDICARE MEDICAID - [place] Care Teams Truck Shop Supervisor Relationship Specialty Start Date End Date Kaylee Hyde MD [address] [place] [address] PCP - General Internal Medicine 10/25/24
--- OUTSIDE RECORDS SUMMARY | 2024-10-25 18:20 | XMS_ITS | Clinical Summary ---
Author Organization [facility] Facility Address [address] [place] [id number] Care Team Providers Care Hybrid Corn Breeder Name Role Phone Veda Jimenes Primary Care Provider [phone] Allergies Active Allergy Reactions Criticality Noted Date Comments Ibuprofen 05/01/2022 Naproxen Other (see comments) 05/01/2022 Other Rash Low 05/01/2022 Medications valproic acid (DEPAKENE) 250 MG capsule TAKE 1 CAPSULE EVERY MORNING AND TAKE 2 CAPSULES EVERY EVENING. 2 Active traZODone (DESYREL) 50 MG tablet 2 Active simvastatin (ZOCOR) 10 MG tablet TAKE 1 TABLET BY MOUTH EVERY DAY AT BEDTIME FOR HYPERLIPIDEMIA 2 Active risperiDONE (RisperDAL) 2 MG tablet Take 2 mg by mouth 2 Active risperiDONE (RisperDAL) 3 MG tablet Take 3 mg by mouth at bed time at bedtime 2 Active loratadine (CLARITIN) 10 MG tablet Take 10 mg by mouth 1 (one) time each day 2 Active loperamide (IMODIUM) 2 MG capsule 2 Active latanoprost (XALATAN) 0.005 % ophthalmic solution INSTILL 1 DROP INTO BOTH EYES DAILY AT BEDTIME 2 Active hydrOXYzine (VISTARIL) 50 MG capsule TAKE 1 CAPSULE BY MOUTH TWICE A DAY NEEDED FOR ANXIETY 2 Active clonazePAM (KlonoPIN) 0.5 MG tablet TAKE 1/2-1 TABLET BY MOUTH EVERY EVENING NEEDED DO NOT TAKE WITH CYCLOBENZAPRINE, HOLD FOR SEDATION, DO NOT TAKE WITH OPIOIDS 2 Active Symbicort 80-4.5 MCG/ACT inhaler 2 Active ARIPiprazole (ABILIFY) 20 MG tablet 2 Active Calcium 600/Vitamin D3 600-800 MG-UNIT tablet Take 1 tablet by mouth 2 Active Active Problems Problem Noted Date Diagnosed Date Asthma 05/01/2022 Cataract 05/01/2022 Glaucoma 05/01/2022 History of cholecystectomy 05/01/2022 Hypercholesterolemia 05/01/2022 Nasal congestion 05/01/2022 Pain in wrist 05/01/2022 Patient care statuses 05/01/2022 Schizoaffective disorder 05/01/2022 Screening colonoscopy 05/01/2022 Well female adult 05/01/2022 Urinary incontinence 05/01/2022 Immunizations Name Administration Dates Next Due Influenza Whole 04/10/2010,06/04/2006 Influenza, Unspecified 09/01/2020,2018,09/28/2018,08/07/2016,1011/2014,04/19/2013 Pfizer SARS-COV-2 09/08/2021,12/08/2020,11/19/19 21 Pneumococcal Polysaccharide 09/05/2015 Td, Unspecified 05/16/2009 Tdap 09/01/2020 Social History Tobacco Use Types Packs/Day Years Used Date Smoking Tobacco: Never Assessed Comments Unknown Sex and Gender Information Value Date Recorded Sex Assigned at Not on file Legal Sex Female 2:47 PM EDT Gender Identity Not on file Sexual Orientation Not on file Plan of Treatment Health Maintenance Due Date Last Done Comments Breast Cancer Screening 1960 Colorectal Cancer Screening: Annual FOBT 2009 Colorectal Cancer Screening: Sigmoidoscopy 2009 Influenza Vaccine (#1) 2024 , 05/21/2019, 09/28/2018, Additional history exists Colorectal Cancer Screening: Colonoscopy 05/01/2032 05/01/2022 Pneumococcal Vaccine: Pediatrics (0 to 5 Years) and At-Risk Patients (6 to 64 Years) Aged Out 09/05/2015 No longer eligible based on patient's age to complete this topic Hepatitis B Vaccine Aged Out No longe r eligible based on patient's age to complete this topic Insurance [place] Care Teams Hybrid Corn Breeder Relationship Specialty Start Date End Date Veda Jimenes [address] [place] [address] PCP - General Internal Medicine 02/14/22
[2024-10-25 18:42] VITALS: BMI 31.4
[2024-10-25 19:08] VITALS: BP 160/99; PULSE 100; RESP 18; TEMP 36.6; O2SAT 97
[2024-10-25 19:09] VITALS: BMI 30.7
--- NOTE | 2024-10-25 19:50 | PC.ADMIT ---
Addendum entered by Alina Rashid RN 10/26/24 07:39: Alicia is a 63 female transferred to from [facility] with diagnosis of altered mental status/delusions. Per [facility] ED note, neighbors found her roaming the halls of her apartment complex confused and not making sense. She was also reportedly walking in the streets, telling strangers she has money to give them etc. She has a history of schizoaffective disorder and hyperlipidemia. Per records she was pleasant and denies SI/HI/AVH. She has no known allergies, tox screen negative, other than some elevated LFT?s labs were reportedly unremarkable- no evidence of UTI. Per? records? she? does not want her family to have any information about her admission and that information can only be discussed with her and psychiatric social worker. Per patient's sister, she does not have a . She reportedly has had several inpatient admissions with the last one being at [facility] and is known to [facility]. Per [facility], pt states a nurse comes to her daily and she takes her medication in the morning and at night. She lives with her? daughter who is also presently hospitalized in a psychiatric unit as well. Per report her sister is seeking to obtain guardianship as she reports pt is not caring for herself, and engaging in unsafe behaviors such as walking into the road not looking for traffic etc.? She arrived on the unit in 184 via stretcher, and had signed a CV when registering in? ED. Skin and safety check performed and unremarkable. Speech is tangential but is calm and cooperative. Denied SI/HI/AVH.? Oriented to the unit and given toiletries. form block maker provider notified of admission and awaiting orders.? Original Note: Admission Note written by Alina Rashid RN but was not saved. This note is typed word for word from Alina's original note to have the note in the computer. Original note will be in patient chart as a hard copy. Alicia is a 63 female transferred to from [facility] with diagnosis of altered mental status/delusions. Per [facility] ED note neighbors found her roaming the halls of her apartment complex confused and not making sense. She was also reportedly walking in the streets, telling strangers she has money to give them etc. She has a history of schizoaffective disorder and hyperlipidemia. Per records she was pleasant and denies SI/HI/AVH. She has no known allergies, tox screen negative, other than some elevated LFT's labs were reportedly-no evidence of UTI. Per records she does not want her family to have any information about her admission and that information can only be discussed with her and psychiatric social worker. Per patient's sister, she does not have a . She reportedly has had several inpatient admissions with the last one being at [facility] and is known to [facility]. Per records, pat states a nurse comes to her daily and she taker her medication in the morning and at night. She lives with her daughter who is also presently hospitalized in a psychiatric unit aswell. Per report her sister is seeking to obtain guardianship as she reports pt is not caring for herself, , and engaging in unsafe behaviors such as walking into the road not looking for traffic etc. She arrived on the unit in 184 via stretcher, and had signed a CV when registering in ED. Skin and safety check performed and unremarkable. Speech is tangential but is calm and cooperative. Denied SI/HI/AVH. Oriented to the unit and given toiletries. form block maker provider notified of admission and awaiting orders.
[2024-10-25 20:45] LABS: Alanine Aminotransferase 77 U/L (0-31); Alkaline Phosphatase 136 U/L (39-117); Anion Gap 13 (12-20); Aspartate Amino Transferase 89 U/L (5-31); Bilirubin Total 0.3 mg/dL (0.0-1.0); Blood Urea Nitrogen 17 mg/dL (9-16); Calcium 9.7 mg/dL (8.4-10.2); Carbon Dioxide 20 mmol/L (22-29); Chloride 115 mmol/L (96-108); Creatinine Clr Calc Pharmacy 34.4; Estimated Glomerular Filt Rate 42; Glucose Random 155 mg/dL (60-115); Potassium 4.8 mmol/L (3.3-5.1); Sodium 143 mmol/L (135-145); Total Protein 7.1 g/dL (6.5-8.0)
[2024-10-25 21:00] VITALS: BP 156/78; PULSE 100
[2024-10-25] MEDS: OLANZapine 5 MG TABLET PO (22:18)
[2024-10-25] MEDS: clonazePAM 0.5 MG TABLET PO (22:18)
--- NOTE | 2024-10-26 06:42 | PC.NURSE ---
Accepted care of the patient at 1930, 10/25/24. Patient noted to be pleasantly confused to situation but oriented to date, place and name. She was willing to sign GABRIELA. Patient insisted that it was her daughter who was knocking on doors at their apartment building. Patient also mentioned her , and gave a convoluted story about her marriage and her living elsewhere. Patient said she was not depressed and not having any SI, HI, AVH. She said I'm anxious because I don't belong here and I have pets to take care of. I also have furniture that is supposed to be delivered in the morning. Alicia also mentioned that she does not have a current psychiatrist but has an appointment scheduled this 10/28/24. This typewriter tester also noted that patient is prescribed Topamax and needs to be reviewed for potential order. Patient cooperative with filling out menu and also compliant with HS medications.
[2024-10-26 07:45] VITALS: BP 140/76; PULSE 81; RESP 18; TEMP 36.8; O2SAT 97
[2024-10-26 08:46] LABS: Estimated Average Glucose 114 mg/dL; Hemoglobin A1C 122.1466 umol/L; Hemoglobin A1c % 5.6 % (<6.0); Total Hemoglobin (HGBA1C) 3270.9379 umol/L
[2024-10-26] MEDS: Escitalopram Oxalate 5 MG TABLET PO (08:52)
[2024-10-26] MEDS: OLANZapine 5 MG TABLET PO ×2 (08:52→20:23)
[2024-10-26] MEDS: Fenofibrate 54 MG TABLET PO (08:52)
[2024-10-26] MEDS: Atorvastatin Calcium 10 MG TABLET PO (08:52)
[2024-10-26] MEDS: clonazePAM 0.5 MG TABLET PO ×2 (08:52→20:23)
[2024-10-26] MEDS: Cholestyramine (With Sugar) 4 GM POWD.PACK PO (08:52)
[2024-10-26 08:59] LABS: Cholesterol 138 mg/dL (<200); HDL Cholesterol 65 mg/dL (>40); LDL Cholesterol Calculated 63 mg/dL (<100); Triglycerides 54 mg/dL (<150)
[2024-10-26 09:14] LABS: Thyroid Stimulating Hormone 3.59 uIU/mL (0.32-4.0)
[2024-10-26 09:31] LABS: Vitamin B12 775 pg/mL (200-900)
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
--- NOTE | 2024-10-26 12:34 | P.CONHOSP_ITS ---
History of Present Illness Data of Consult Service Date: 10/26/24 Requesting physician: Maggy aGrza Primary Care Provider: Unknown Physician HPI Reason for consult: Medical H&P 63-year-old female with history of schizoaffective disorder, hyperlipidemia, hypertension, vitamin-D disorder, and osteoporosis admitted to Geriatric Psychiatry from [facility] ED with consult placed hospitalist service for medical H&P. While in the ED, hematology studies remarkable for a mild normocytic anemia with H/H12.1/37.7%. Renal function consistent with CKD stage 3, creatinine 1.13. Electrolyte levels normal. Glucose normal. AST elevated at 99, ALT 89. Alkaline phosphatase 144. Urinalysis contaminated, low suspicion for infection. Ethyl alcohol level undetectable. Urine tox screen negative. EKG with normal sinus rhythm, rate 74, no ST/T-wave abnormalities. Patient has no complaints at this time but is asking when she can be discharged. Review of Systems 2 Review of Systems: General: No fevers, malaise, unintentional weight loss HEENT: No blurred vision, diplopia. No sore throat, nasal congestion, rhinorrhea, sinus pain, ear pain Cardiovascular: No chest pain, palpitations, or leg edema Respiratory: No shortness of breath, wheezing, cough GI: No abdominal pain, nausea, vomiting, diarrhea, constipation, melena, hematochezia : No dysuria, hematuria, increased urinary frequency, decreased urinary output MSK: No myalgia, back pain Neuro: No headaches, weakness, paresthesias Skin: No rashes or lesions [facility] Medical History Schizoaffective disorder Social History Household Members: Family Housing: Apartment Do you presently have visiting nurse or other home services: Yes Patient Tobacco Use Status: Never used Tobacco e-Cigarette/Vaping Use: Never Used Use of substances other than those prescribed or required for medical reasons: Yes Substance Use Type: Caffiene Substance Use Frequency: Chronic Longstanding Last Used Substance: Hours (ago) Currently Displaying Signs/Symptoms of Drug Intoxication Withdrawal: No Any prior treatment program specific to substance use: No Have you been hit, kicked, punched, or otherwise hurt by someone within the past year? If so, by whom?: No Do you feel safe in your current relationship?: Yes Is there a partner from a previous relationship who is making you feel unsafe now?: No Are you made to feel afraid or neglected: No Spiritual Healthcare Practices: unknown Pentecostalism Healthcare Practices: unknown Cultural Healthcare Practices: unknown Advance Directives: No Advance Directives Information Provided: Yes Do you have thoughts of harming others: None Do you have a plan to hurt others: No Plan Recently lost weight without trying: No Nutrition Risks: No Nutritional Risk Patient : No : No Poor oral hygiene: No service: No Sexual orientation: Straight/Heterosexual Meds Allergies Allergy/AdvReac Type Severity Reaction Status Date / Time No Known Allergies Allergy Verified 10/25/24 18:44 Active Medications: Current Medications Acetaminophen (Acetaminophen 325 Mg Tablet) 650 mg PO Q6H PRN PRN Reason: Headache/Pain, Scale 1-10 Al Hydroxide/Mg Hydroxide (Magnesium Hydrox/Alum Hydrox 30 Ml Oral.Susp) 30 ml PO Q6H PRN PRN Reason: Heartburn/Nausea Albuterol Sulfate (Albuterol Sulfate 90 Mcg 8 Gm Inhaler) 2 puff INHALE Q4H PRN PRN Reason: Wheezing Atorvastatin Calcium (Atorvastatin Calcium 10 Mg Tablet) 10 mg PO DAILY [facility] Last Admin: 10/26/24 08:52 Dose: 10 mg Cholestyramine Resin (Cholestyramine (With Sugar) 4 Gm Powd.Pack) 4 gm PO DAILY [facility] Last Admin: 10/26/24 08:52 Dose: 4 gm Clonazepam (Clonazepam 0.5 Mg Tablet) 0.5 mg PO BID [facility] Last Admin: 10/26/24 08:52 Dose: 0.5 mg Escitalopram Oxalate (Escitalopram Oxalate 5 Mg Tablet) 5 mg PO DAILY [facility] Last Admin: 10/26/24 08:52 Dose: 5 mg Fenofibrate (Fenofibrate 54 Mg Tablet) 54 mg PO DAILY [facility] Last Admin: 10/26/24 08:52 Dose: 54 mg Fluticasone/Vilanterol (Fluticasone/Vilanterol 100/25 Blst.W.Dev) 1 puff INHALE RDAILY [facility] Last Admin: 10/26/24 08:57 Dose: Not Given Hydroxyzine HCl (Hydroxyzine Hcl 25 Mg Tablet) 25 mg PO Q6H PRN PRN Reason: mild anxiety Magnesium Hydroxide (Milk Of Magnesia 30 Ml Oral.Susp) 30 ml PO DAILY PRN PRN Reason: Constipation Nicotine Polacrilex (Nicotine Polacrilex 2 Mg Gum) 4 mg BUCCAL Q2H PRN PRN Reason: Nicotine Cravings Olanzapine (Olanzapine 5 Mg Tablet) 5 mg PO BID [facility] Last Admin: 10/26/24 08:52 Dose: 5 mg Trazodone HCl (Trazodone Hcl 50 Mg Tablet) 50 mg PO BEDTIME MRX1 PRN PRN Reason: Insomnia Home Medications ?Medication ?Instructions ?Recorded ?Confirmed ?Last Taken ?Type albuterol sulfate 90 mcg/actuation 2 puff inhalation Q4-6H PRN 10/25/24 10/25/24 Unknown History aerosol inhaler (Ventolin HFA) Wheezing cholestyramine (with sugar) 4 gram 1 ea PO DAILY 10/25/24 10/25/24 10/25/24 17:00 History powder for susp in a packet clonazepam 0.5 mg tablet 0.5 mg PO BID 10/25/24 10/25/24 10/25/24 14:58 History escitalopram oxalate 5 mg tablet 5 mg PO DAILY 10/25/24 10/25/24 10/25/24 14:57 History fenofibrate nanocrystallized 48 mg 48 mg PO DAILY 10/25/24 10/25/24 10/25/24 14:58 History tablet fluticasone furoate 100 1 ea inhalation DAILY 10/25/24 10/25/24 Unknown History mcg-vilanterol 25 mcg/dose inhalation powder (Breo Ellipta) olanzapine 5 mg disintegrating 5 mg PO BID 10/25/24 10/25/24 10/25/24 14:57 History tablet simvastatin 10 mg tablet 10 mg PO DAILY 10/25/24 10/25/24 10/24/24 21:00 History topiramate 25 mg tablet 25 mg PO BID 10/25/24 10/25/24 10/25/24 14:57 History Physical Exam 2 Vital Signs and Narrative: Vital Signs: Last Vital Signs Temp 98.3 F 10/26/24 07:45 Pulse 81 10/26/24 07:45 Resp 18 10/26/24 07:45 BP 140/76 H 10/26/24 07:45 Pulse Ox 97 10/26/24 07:45 O2 Del Method Room Air 10/26/24 07:45 BMI result Body Mass Index 30.7 Constitutional - Awake and Alert, No apparent distress Eyes - PERRLA, EOMI Cardiovascular - S1S2, RRR, No edema Respiratory - Normal lung expansion, Normal respiratory effort, No respiratory distress, CTA bilaterally Gastrointestinal - NT / ND; +BS; No rebound or guarding Extremities - no calf tenderness bilaterally, no swelling Musculoskeletal - Normal inspection, normal ROM Skin - Warm/Dry Neurological - Alert & oriented x3, CN II-XII in tact, 5/5 strength BUE and BLE Psychological - Appropriate affect Results Labs 10/25/24 20:16 Labs: Laboratory Results - last 24 hr 10/25/24 10/26/24 20:16 08:21 Anion Gap 13 Estim Creat Clear Calc 34.4 Estimated GFR 42 Random Glucose 155 H Estimat Average Glucose 114 Hemoglobin A1c % 5.6 Calcium 9.7 Total Bilirubin 0.3 AST 89 H ALT 77 H Alkaline Phosphatase 136 H Total Protein 7.1 Albumin 4.0 Triglycerides 54 Cholesterol 138 LDL Cholesterol, Calc 63 HDL Cholesterol 65 Vitamin B12 775 Folate 9.0 TSH 3.59 Assessment and Plan (1) Mild cognitive impairment: Status: Acute (2) Schizoaffective disorder: Status: Acute Plan 3-year-old female with history of schizoaffective disorder, asthma, hyperlipidemia, hypertension, vitamin-D disorder, and osteoporosis admitted to Geriatric Psychiatry from [facility] ED with consult placed hospitalist service for medical H&P. Schizoaffective disorder Plan per Psychiatry Mild cognitive impairment Plan per Psychiatry. Recommend maintaining sleep wake cycle Hypertension Blood pressure controlled Not on antihypertensives at this time Unspecified asthma Continue Breo Ellipta, albuterol p.r.n. Hyperlipidemia Statin CKD stage 3 Baseline creatinine 1.13, GFR 55 Thank you for allowing me to participate in this consult. Signing off at this time. Please do not hesitate to call for further questions or for any acute medical issues
--- NOTE | 2024-10-26 18:26 | PC.NURSE ---
Nurse to nurse given to RN Daisha on? S[facility] prior to pt transferring to S1. Pt scored 14 on the MOCA and patient is likely best suited for S1. Urine specimen sent and pending. Pt upset she will not be DC?d today and was informed she will transfer to S1.. She is worried about her dog and cats back at her apartment and reports she has no one to check on them. She does not want to call her family for assistance but according to note a family member is there already caring for them. Belongings and chart gathered and taken to S1 via WC.?
--- NOTE | 2024-10-26 19:00 | PC.NURSE ---
Pt. transferred to unit at 18:45 via WC accompanied by [facility]. Pt. A & O X 3. Delusional about situation. Oriented to unit and she states, I don't need to know where anything is. I'll just be in my room.
[2024-10-26 20:20] VITALS: BP 105/59; PULSE 70; RESP 16; TEMP 36.4; O2SAT 97
[2024-10-26] MEDS: Topiramate 25 MG TABLET PO (20:23)
[2024-10-27 08:41] VITALS: BP 101/65; PULSE 91; RESP 20; TEMP 36.9; O2SAT 98
[2024-10-27] MEDS: OLANZapine 5 MG TABLET PO ×2 (08:44→20:09)
[2024-10-27] MEDS: Topiramate 25 MG TABLET PO ×2 (08:45→20:09)
[2024-10-27] MEDS: clonazePAM 0.5 MG TABLET PO ×2 (08:46→20:09)
[2024-10-27] MEDS: Fenofibrate 54 MG TABLET PO (08:46)
[2024-10-27] MEDS: Escitalopram Oxalate 5 MG TABLET PO (08:46)
[2024-10-27] MEDS: Cholestyramine (With Sugar) 4 GM POWD.PACK PO (08:47)
--- NOTE | 2024-10-27 13:21 | HO.PSYCHPN ---
Subjective Subjective Date of Service: 10/27/24 Reason For Visit: Schizoaffective disorder Bipolar type Subjective Notes: Conditional Voluntary Interim History: Pt slept through the night. She reports she was brought by police to the hospital because someone called. She reports she was in the [place] her apartment [place]. She reports she is planning to move to [place] with her and is leaving her apartment to her daughter. When asked about her , and who he is. She reports they got last year. She reports she has not talked with him, and does not have his phone number. She reports she has an email. She reports she has not seen him since they got . No SI/HI. Collateral information gathered from nephew (ALVA Camacho spoke with him) who reports that hx of what seems to be erotomanic delusions (thinking she is to someone who does not have a romantic relationship with her and also delusions of giving to their children). Apparently, she used to be on lithium and it seemed to help but dc due to renal problems. Medication Compliance: Yes Side effects from medications: No Attending Groups: No Mental Status Exam Mental Status Exam Narrative: Appearance: wearing hospital gown, fair hygiene, in NAD Behavior: cooperative Psychomotor: no agitation or retardation noted Speech: clear, normal rate/rhythm/volume, spontaneous TP: linear TC: preoccupied about reuniting with soon Mood: good Affect: congruent, smiles at times SI: denies HI: denies VH/AH: no overt signs at the moment Delusions: erotomanic delusions Insight/judgment: impaired x 2 Memory/cog: alert, oriented to place, month, year not so much situation Diagnostics Vital Signs (24Hr): Vital Signs - 24 hr 10/26/24 20:20 10/27/24 08:41 Temperature 97.5 F 98.4 F Pulse Rate 70 91 Respiratory Rate 16 20 Blood Pressure 105/59 L 101/65 Pulse Oximetry 97 98 Oxygen Delivery Method Room Air Room Air BMI result Body Mass Index 30.7 Labs 10/25/24 20:16 Labs: Laboratory Results - last 48 hr 10/25/24 10/26/24 20:16 08:21 Sodium 143 Potassium 4.8 Chloride 115 H Carbon Dioxide 20 L Anion Gap 13 BUN 17 H Creatinine 1.29 Estim Creat Clear Calc 34.4 Estimated GFR 42 Random Glucose 155 H Estimat Average Glucose 114 Hemoglobin A1c % 5.6 Calcium 9.7 Total Bilirubin 0.3 AST 89 H ALT 77 H Alkaline Phosphatase 136 H Total Protein 7.1 Albumin 4.0 Triglycerides 54 Cholesterol 138 LDL Cholesterol, Calc 63 HDL Cholesterol 65 Vitamin B12 775 Folate 9.0 TSH 3.59 Medications Medications Current Medications Acetaminophen (Acetaminophen 325 Mg Tablet) 650 mg PO Q6H PRN PRN Reason: Headache/Pain, Scale 1-10 Al Hydroxide/Mg Hydroxide (Magnesium Hydrox/Alum Hydrox 30 Ml Oral.Susp) 30 ml PO Q6H PRN PRN Reason: Heartburn/Nausea Albuterol Sulfate (Albuterol Sulfate 90 Mcg 8 Gm Inhaler) 2 puff INHALE Q4H PRN PRN Reason: Wheezing Atorvastatin Calcium (Atorvastatin Calcium 10 Mg Tablet) 10 mg PO DAILY [facility] Last Admin: 10/27/24 08:44 Dose: Not Given Cholestyramine Resin (Cholestyramine (With Sugar) 4 Gm Powd.Pack) 4 gm PO DAILY [facility] Last Admin: 10/27/24 08:47 Dose: 4 gm Clonazepam (Clonazepam 0.5 Mg Tablet) 0.5 mg PO BID [facility] Last Admin: 10/27/24 08:46 Dose: 0.5 mg Escitalopram Oxalate (Escitalopram Oxalate 5 Mg Tablet) 5 mg PO DAILY [facility] Last Admin: 10/27/24 08:46 Dose: 5 mg Fenofibrate (Fenofibrate 54 Mg Tablet) 54 mg PO DAILY [facility] Last Admin: 10/27/24 08:46 Dose: 54 mg Fluticasone/Vilanterol (Fluticasone/Vilanterol 100/25 Blst.W.Dev) 1 puff INHALE RDAILY [facility] Last Admin: 10/27/24 08:57 Dose: Not Given Hydroxyzine HCl (Hydroxyzine Hcl 25 Mg Tablet) 25 mg PO Q6H PRN PRN Reason: mild anxiety Magnesium Hydroxide (Milk Of Magnesia 30 Ml Oral.Susp) 30 ml PO DAILY PRN PRN Reason: Constipation Nicotine Polacrilex (Nicotine Polacrilex 2 Mg Gum) 4 mg BUCCAL Q2H PRN PRN Reason: Nicotine Cravings Olanzapine (Olanzapine 5 Mg Tablet) 5 mg PO BID [facility] Last Admin: 10/27/24 08:44 Dose: 5 mg Topiramate (Topiramate 25 Mg Tablet) 25 mg PO BID [facility] Last Admin: 10/27/24 08:45 Dose: 25 mg Trazodone HCl (Trazodone Hcl 50 Mg Tablet) 50 mg PO BEDTIME MRX1 PRN PRN Reason: Insomnia Allergies Allergies Allergy/AdvReac Type Severity Reaction Status Date / Time No Known Allergies Allergy Verified 10/25/24 18:44 Assessment & Plan Assessment & Plan (1) Mild cognitive impairment: Status: Acute Code(s): G31.84 - Mild cognitive impairment of uncertain or unknown etiology (2) Schizoaffective disorder: Status: Acute Code(s): F25.9 - Schizoaffective disorder, unspecified Plan Mrs. Jaime is a 63 year-old woman who was brought via EMS after neighbor called police reporting patient was [place] the [place] knocking doors. She presents with erotomanic delusions of being to someone she is not and reports is planning to move in with this person despite reporting she has not seen this person in one year and has not talked with him. She somehow believes this person is waiting for her. Collateral information from family (nephew) who reports pt has hx of delusions related to being romantically involved with someone she is not (erotomanic delusions). Hx of multiple psychiatric admission. She had 2 inpt psychiatric admission last year. We discussed risks, benefits and alternative treatment options. continue current medications. 4/2- Needs a mood stabilizer. She used to be on depakote- note elevation in LFTs. It seems lithium was most effective mood stabilizer but d/c due to underlying CKD. May consider carbamazepine. continue olanzapine, but may also consider different antipsychotic with FAIRCHILD formulation and less impact on liver function. Will check hep panel given elevated LFTs. It does seem from records from [facility], elevation is not new but no additional testing completed nor explanation was given. Reason for continued inpatient stay Substantial Risk for: inability to function Time Spent With Patient Time: Total time managing care of this patient today ____ minutes.
[2024-10-27 20:00] VITALS: BP 104/59; PULSE 91; RESP 16; TEMP 36.3; O2SAT 97
[2024-10-28 08:00] VITALS: BP 108/59; PULSE 92; RESP 18; TEMP 36; O2SAT 97
[2024-10-28] MEDS: Fenofibrate 54 MG TABLET PO (08:57)
[2024-10-28] MEDS: Atorvastatin Calcium 10 MG TABLET PO ×2 (08:57→20:25)
[2024-10-28] MEDS: clonazePAM 0.5 MG TABLET PO ×2 (08:57→20:25)
[2024-10-28] MEDS: Albuterol Sulfate 90 MCG 8 GM INHALER 2 PUFF INHALE ×3 (08:57→20:31)
[2024-10-28] MEDS: OLANZapine 5 MG TABLET PO (08:57)
[2024-10-28] MEDS: Topiramate 25 MG TABLET PO (08:57)
[2024-10-28] MEDS: Cholestyramine (With Sugar) 4 GM POWD.PACK PO (08:57)
[2024-10-28] MEDS: Escitalopram Oxalate 5 MG TABLET PO (08:57)
[2024-10-28 09:05] LABS: Ammonia 42 umol/L (13-55)
[2024-10-28 09:34] LABS: HBc Num1 0.12 S/CO (0.00-0.79); HBsAGNum1 0.37 S/CO (0.00-0.99); Hepatitis A Antibody IgM 0.29 Index (0-0.79); Hepatitis B Core Antibody Nonreactive (Nonreactive); Hepatitis B Surface Antigen Negative (Negative); ~HepC Num1 0.07 S/CO (0.00-0.79); ~Hepatitis A Antibody IgM Nonreactive (Nonreactive); ~Hepatitis B Surface Antibody NONREACTIVE (Nonreactive); ~Hepatitis C Antibody Nonreactive (Nonreactive)
[2024-10-28 10:43] VITALS: BMI 31.0
--- NOTE | 2024-10-28 14:36 | P.PNPSI_ITS ---
Subjective Subjective Date of Service: 10/28/24 Reason For Visit: Schizoaffective disorder Bipolar type Subjective Notes: Conditional Voluntary Interim History: Pt slept all night. She is casually groomed, she reports she is ready for discharge. She reports she plans to go to her 's house who is the sports medicine specialist of [employer] in [place]. He denies thinking that she is . We talked about her mood stabilizer and considering carbamazepine, given that lithium caused renal problems, and she does have mild elevation in LFTs. We also discussed increasing dose of olanzapine. Diagnostics Vital Signs (24Hr): Vital Signs - 24 hr 10/27/24 20:00 10/28/24 08:00 Temperature 97.4 F 96.8 F Pulse Rate 91 92 Respiratory Rate 16 18 Blood Pressure 104/59 L 108/59 L Pulse Oximetry 97 97 Oxygen Delivery Method Room Air Room Air BMI result Body Mass Index 31.0 Labs 10/25/24 20:16 Labs: Laboratory Results - last 48 hr 10/28/24 08:43 Ammonia 42 Hepatitis A IgM Ab Nonreactive Hep Bs Antigen Negative Hep Bs Antibody NONREACTIVE Hep B Core Total Ab Nonreactive Hepatitis C Ab (EIA) Nonreactive Medications Medications Current Medications Acetaminophen (Acetaminophen 325 Mg Tablet) 650 mg PO Q6H PRN PRN Reason: Headache/Pain, Scale 1-10 Al Hydroxide/Mg Hydroxide (Magnesium Hydrox/Alum Hydrox 30 Ml Oral.Susp) 30 ml PO Q6H PRN PRN Reason: Heartburn/Nausea Albuterol Sulfate (Albuterol Sulfate 90 Mcg 8 Gm Inhaler) 2 puff INHALE Q4H PRN PRN Reason: Wheezing Last Admin: 10/28/24 09:05 Dose: 2 puff Atorvastatin Calcium (Atorvastatin Calcium 10 Mg Tablet) 10 mg PO DAILY [facility] Last Admin: 10/28/24 08:57 Dose: 10 mg Cholestyramine Resin (Cholestyramine (With Sugar) 4 Gm Powd.Pack) 4 gm PO DAILY [facility] Last Admin: 10/28/24 08:57 Dose: 4 gm Clonazepam (Clonazepam 0.5 Mg Tablet) 0.5 mg PO BID [facility] Last Admin: 10/28/24 08:57 Dose: 0.5 mg Escitalopram Oxalate (Escitalopram Oxalate 5 Mg Tablet) 5 mg PO DAILY [facility] Last Admin: 10/28/24 08:57 Dose: 5 mg Fenofibrate (Fenofibrate 54 Mg Tablet) 54 mg PO DAILY [facility] Last Admin: 10/28/24 08:57 Dose: 54 mg Fluticasone/Vilanterol (Fluticasone/Vilanterol 100/25 Blst.W.Dev) 1 puff INHALE RDAILY [facility] Last Admin: 10/28/24 09:06 Dose: Not Given Hydroxyzine HCl (Hydroxyzine Hcl 25 Mg Tablet) 25 mg PO Q6H PRN PRN Reason: mild anxiety Magnesium Hydroxide (Milk Of Magnesia 30 Ml Oral.Susp) 30 ml PO DAILY PRN PRN Reason: Constipation Nicotine Polacrilex (Nicotine Polacrilex 2 Mg Gum) 4 mg BUCCAL Q2H PRN PRN Reason: Nicotine Cravings Olanzapine (Olanzapine 5 Mg Tablet) 5 mg PO BID [facility] Last Admin: 10/28/24 08:57 Dose: 5 mg Topiramate (Topiramate 25 Mg Tablet) 25 mg PO BID [facility] Last Admin: 10/28/24 08:57 Dose: 25 mg Trazodone HCl (Trazodone Hcl 50 Mg Tablet) 50 mg PO BEDTIME MRX1 PRN PRN Reason: Insomnia Allergies Allergies Allergy/AdvReac Type Severity Reaction Status Date / Time No Known Allergies Allergy Verified 10/25/24 18:44 Assessment & Plan Assessment & Plan (1) Schizoaffective disorder: Status: Acute Code(s): F25.9 - Schizoaffective disorder, unspecified (2) Mild cognitive impairment: Status: Acute Code(s): G31.84 - Mild cognitive impairment of uncertain or unknown etiology Plan Mrs. Jaime is a 63 year-old woman who was brought via EMS after neighbor called police reporting patient was [place] the [place] knocking doors. She presents with erotomanic delusions of being to someone she is not and reports is planning to move in with this person despite reporting she has not seen this person in one year and has not talked with him. She somehow believes this person is waiting for her. Collateral information from family (nephew) who reports pt has hx of delusions related to being romantically involved with someone she is not (erotomanic delusions). Hx of multiple psychiatric admission. She had 2 inpt psychiatric admission last year. We discussed risks, benefits and alternative treatment options. continue current medications. /- Needs a mood stabilizer. She used to be on depakote- note elevation in LFTs. It seems lithium was most effective mood stabilizer but d/c due to underlying CKD. May consider carbamazepine. continue olanzapine, but may also consider different antipsychotic with FAIRCHILD formulation and less impact on liver function. Will check hep panel given elevated LFTs. It does seem from records from [facility], elevation is not new but no additional testing completed nor explanation was given. 4/3 d/c topamax, start carbamazepine 100mg po BID. increase olanzapine 5mg po daily and 10mg po qhs. Reason for continued inpatient stay Substantial Risk for: inability to function Time Spent With Patient Time: Total time managing care of this patient today ____ minutes.
[2024-10-28 20:00] VITALS: BP 143/67; PULSE 78; RESP 15; TEMP 36.1; O2SAT 97
[2024-10-28] MEDS: carBAMazepine 100 MG TAB.CHEW PO (20:25)
[2024-10-28] MEDS: OLANZapine ODT 10 MG TAB.RAPDIS TRANSLINGU (20:26)
[2024-10-29 08:00] VITALS: BP 107/69; PULSE 100; RESP 18; TEMP 36.7; O2SAT 96
[2024-10-29] MEDS: Cholestyramine (With Sugar) 4 GM POWD.PACK PO (08:35)
[2024-10-29] MEDS: Albuterol Sulfate 90 MCG 8 GM INHALER 2 PUFF INHALE (08:35)
[2024-10-29] MEDS: OLANZapine 5 MG TABLET PO (08:36)
[2024-10-29] MEDS: Fenofibrate 54 MG TABLET PO (08:36)
[2024-10-29] MEDS: carBAMazepine 100 MG TAB.CHEW PO ×2 (08:36→21:00)
[2024-10-29] MEDS: clonazePAM 0.5 MG TABLET PO ×2 (08:36→21:00)
--- NOTE | 2024-10-29 08:57 | P.PNPSI_ITS ---
Subjective Subjective Date of Service: 10/29/24 Reason For Visit: Schizoaffective disorder Bipolar type Subjective Notes: Conditional Voluntary Interim History: Pt slept all night. She presents with expansive mood. She reports she is looking forward to go see her . She reports they got this last August on , not last year as she told this proposal lead writer. She reports he is the line haul owner operator of popular restaurant in [place]. She denies SI/HI. She states she wants to go to address where she bought a house with 18 rooms. She reports she has a lot of money and able to afford buying big houses, which is not the case according to family. She is taking medications as prescribed. This proposal lead writer informed patient of her right to sign 3 day notice as she is requesting discharge but she declines. this proposal lead writer explained concern in terms of patient believing she is in romantic relationship with someone she is not. Review of Systems Review of Systems General: No fevers, malaise, unintentional weight loss HEENT: No blurred vision, diplopia. No sore throat, nasal congestion, rhinorrhea, sinus pain, ear pain Cardiovascular: No chest pain, palpitations, or leg edema Respiratory: No shortness of breath, wheezing, cough GI: No abdominal pain, nausea, vomiting, diarrhea, constipation, melena, hematochezia : No dysuria, hematuria, increased urinary frequency, decreased urinary output MSK: No myalgia, back pain Neuro: No headaches, weakness, paresthesias Skin: No rashes or lesions Mental Status Exam Mental Status Exam Narrative: Appearance: wearing hospital gown, fair hygiene, in NAD Behavior: cooperative Psychomotor: no agitation or retardation noted Speech: clear, normal rate/rhythm/volume, spontaneous TP: linear TC: preoccupied about reuniting with soon Mood: good Affect: congruent, smiles at times SI: denies HI: denies VH/AH: no overt signs at the moment Delusions: erotomanic delusions Insight/judgment: impaired x 2 Memory/cog: alert, oriented to place, month, year not so much situation Diagnostics Vital Signs (24Hr): Vital Signs - 24 hr 10/28/24 20:00 Temperature 96.9 F Pulse Rate 78 Respiratory Rate 15 Blood Pressure 143/67 H Pulse Oximetry 97 Oxygen Delivery Method Room Air BMI result Body Mass Index 31.0 Labs 10/25/24 20:16 Labs: Laboratory Results - last 48 hr 10/28/24 08:43 Ammonia 42 Hepatitis A IgM Ab Nonreactive Hep Bs Antigen Negative Hep Bs Antibody NONREACTIVE Hep B Core Total Ab Nonreactive Hepatitis C Ab (EIA) Nonreactive Medications Medications Current Medications Acetaminophen (Acetaminophen 325 Mg Tablet) 650 mg PO Q6H PRN PRN Reason: Headache/Pain, Scale 1-10 Al Hydroxide/Mg Hydroxide (Magnesium Hydrox/Alum Hydrox 30 Ml Oral.Susp) 30 ml PO Q6H PRN PRN Reason: Heartburn/Nausea Albuterol Sulfate (Albuterol Sulfate 90 Mcg 8 Gm Inhaler) 2 puff INHALE Q4H PRN PRN Reason: Wheezing Last Admin: 10/29/24 08:35 Dose: 2 puff Atorvastatin Calcium (Atorvastatin Calcium 10 Mg Tablet) 10 mg PO BEDTIME [facility] Last Admin: 10/28/24 20:25 Dose: 10 mg Carbamazepine (Carbamazepine 100 Mg Tab.Chew) 100 mg PO BID [facility] Last Admin: 10/29/24 08:36 Dose: 100 mg Cholestyramine Resin (Cholestyramine (With Sugar) 4 Gm Powd.Pack) 4 gm PO DAILY [facility] Last Admin: 10/29/24 08:35 Dose: 4 gm Clonazepam (Clonazepam 0.5 Mg Tablet) 0.5 mg PO BID [facility] Last Admin: 10/29/24 08:36 Dose: 0.5 mg Fenofibrate (Fenofibrate 54 Mg Tablet) 54 mg PO DAILY [facility] Last Admin: 10/29/24 08:36 Dose: 54 mg Fluticasone/Vilanterol (Fluticasone/Vilanterol 100/25 Blst.W.Dev) 1 puff INHALE RDAILY [facility] Last Admin: 10/28/24 09:06 Dose: Not Given Hydroxyzine HCl (Hydroxyzine Hcl 25 Mg Tablet) 25 mg PO Q6H PRN PRN Reason: mild anxiety Magnesium Hydroxide (Milk Of Magnesia 30 Ml Oral.Susp) 30 ml PO DAILY PRN PRN Reason: Constipation Nicotine Polacrilex (Nicotine Polacrilex 2 Mg Gum) 4 mg BUCCAL Q2H PRN PRN Reason: Nicotine Cravings Olanzapine (Olanzapine 5 Mg Tablet) 5 mg PO DAILY [facility] Last Admin: 10/29/24 08:36 Dose: 5 mg Olanzapine (Olanzapine Odt 10 Mg Tab.Rapdis) 10 mg TRANSLINGU BEDTIME [facility] Last Admin: 10/28/24 20:26 Dose: 10 mg Trazodone HCl (Trazodone Hcl 50 Mg Tablet) 50 mg PO BEDTIME MRX1 PRN PRN Reason: Insomnia Allergies Allergies Allergy/AdvReac Type Severity Reaction Status Date / Time No Known Allergies Allergy Verified 10/25/24 18:44 Assessment & Plan Assessment & Plan (1) Schizoaffective disorder: Status: Acute Code(s): F25.9 - Schizoaffective disorder, unspecified Assessment and Plan: bipolar type with erotomanic and grandiose of delusions of having a lot of money (2) Mild cognitive impairment: Status: Acute Code(s): G31.84 - Mild cognitive impairment of uncertain or unknown etiology Plan Mrs. Jaime is a 63 year-old woman who was brought via EMS after neighbor called police reporting patient was [place] doors. She presents with erotomanic delusions of being to someone she is not and reports is planning to move in with this person despite reporting she has not seen this person in one year and has not talked with him. She somehow believes this person is waiting for her. Collateral information from family (nephew) who reports pt has hx of delusions related to being romantically involved with someone she is not (erotomanic delusions). Hx of multiple psychiatric admission. She had 2 inpt psychiatric admission last year. We discussed risks, benefits and alternative treatment options. continue current medications. 4/2- Needs a mood stabilizer. She used to be on depakote- note elevation in LFTs. It seems lithium was most effective mood stabilizer but d/c due to underlying CKD. May consider carbamazepine. continue olanzapine, but may also consider different antipsychotic with FAIRCHILD formulation and less impact on liver function. Will check hep panel given elevated LFTs. It does seem from records from [facility], elevation is not new but no additional testing completed nor explanation was given. 4/3 d/c topamax, start carbamazepine 100mg po BID. increase olanzapine 5mg po daily and 10mg po qhs. 10/29 increase carbamazepine 200mg po BID. continue olanzapine. Reason for continued inpatient stay Substantial Risk for: inability to function Time Spent With Patient Time: Total time managing care of this patient today ____ minutes.
[2024-10-29 20:00] VITALS: BP 123/79; PULSE 84; RESP 18; TEMP 36.2; O2SAT 97
[2024-10-29] MEDS: OLANZapine ODT 10 MG TAB.RAPDIS TRANSLINGU (21:00)
[2024-10-29] MEDS: Atorvastatin Calcium 10 MG TABLET PO (21:00)
[2024-10-30 08:00] VITALS: BP 110/73; PULSE 82; RESP 18; TEMP 36.8; O2SAT 97
[2024-10-30] MEDS: Fenofibrate 54 MG TABLET PO (08:56)
[2024-10-30] MEDS: Cholestyramine (With Sugar) 4 GM POWD.PACK PO (08:56)
[2024-10-30] MEDS: OLANZapine 5 MG TABLET PO (08:57)
[2024-10-30] MEDS: clonazePAM 0.5 MG TABLET PO ×2 (08:57→20:22)
[2024-10-30] MEDS: carBAMazepine 100 MG TAB.CHEW 200 MG PO ×2 (09:00→20:22)
--- NOTE | 2024-10-30 09:36 | P.PNPSI_ITS ---
Subjective Subjective Date of Service: 10/30/24 Reason For Visit: Schizoaffective disorder Bipolar type Interim History: Met with pt, reviewed with her team. Pt is active, engaged, some confusion noted, wanting to go home, as she has several tasks to attend to. She presents with a positive demeanor and is attentive to milieu activity and to others needs. Medication Compliance: Yes Review of Systems Review of Systems Denies Mental Status Exam Mental Status Exam Patient Appearance: Appropriate Patient Orientation: Person and Place Level of Consciousness: Alert Patient Behavior: Talkative and Good Eye Contact Mood Description: Calm and Cheerful Affect Description: Calm Patient Cognition Impaired: Yes Ability to Follow Directions: Good Speech Pattern: Spontaneous Speech Memory Description: Remote Impaired Thought Content: positive for [place] and positive for Circumstantial Judgement: Poor Diagnostics Vital Signs (24Hr): Vital Signs - 24 hr 10/29/24 20:00 Temperature 97.2 F Pulse Rate 84 Respiratory Rate 18 Blood Pressure 123/79 Pulse Oximetry 97 Oxygen Delivery Method Room Air BMI result Body Mass Index 31.0 Labs 10/25/24 20:16 Labs: Laboratory Results - last 48 hr 10/28/24 08:43 Hepatitis A IgM Ab Nonreactive Hep Bs Antigen Negative Hep Bs Antibody NONREACTIVE Hep B Core Total Ab Nonreactive Hepatitis C Ab (EIA) Nonreactive Medications Medications Current Medications Acetaminophen (Acetaminophen 325 Mg Tablet) 650 mg PO Q6H PRN PRN Reason: Headache/Pain, Scale 1-10 Al Hydroxide/Mg Hydroxide (Magnesium Hydrox/Alum Hydrox 30 Ml Oral.Susp) 30 ml PO Q6H PRN PRN Reason: Heartburn/Nausea Albuterol Sulfate (Albuterol Sulfate 90 Mcg 8 Gm Inhaler) 2 puff INHALE Q4H PRN PRN Reason: Wheezing Last Admin: 10/29/24 08:35 Dose: 2 puff Atorvastatin Calcium (Atorvastatin Calcium 10 Mg Tablet) 10 mg PO BEDTIME [facility] Last Admin: 10/29/24 21:00 Dose: 10 mg Carbamazepine (Carbamazepine 100 Mg Tab.Chew) 200 mg PO BID [facility] Last Admin: 10/30/24 09:00 Dose: 200 mg Cholestyramine Resin (Cholestyramine (With Sugar) 4 Gm Powd.Pack) 4 gm PO DAILY [facility] Last Admin: 10/30/24 08:56 Dose: 4 gm Clonazepam (Clonazepam 0.5 Mg Tablet) 0.5 mg PO BID [facility] Last Admin: 10/30/24 08:57 Dose: 0.5 mg Fenofibrate (Fenofibrate 54 Mg Tablet) 54 mg PO DAILY [facility] Last Admin: 10/30/24 08:56 Dose: 54 mg Fluticasone/Vilanterol (Fluticasone/Vilanterol 100/25 Blst.W.Dev) 1 puff INHALE RDAILY [facility] Last Admin: 10/30/24 09:02 Dose: Not Given Hydroxyzine HCl (Hydroxyzine Hcl 25 Mg Tablet) 25 mg PO Q6H PRN PRN Reason: mild anxiety Magnesium Hydroxide (Milk Of Magnesia 30 Ml Oral.Susp) 30 ml PO DAILY PRN PRN Reason: Constipation Nicotine Polacrilex (Nicotine Polacrilex 2 Mg Gum) 4 mg BUCCAL Q2H PRN PRN Reason: Nicotine Cravings Olanzapine (Olanzapine 5 Mg Tablet) 5 mg PO DAILY [facility] Last Admin: 10/30/24 08:57 Dose: 5 mg Olanzapine (Olanzapine Odt 10 Mg Tab.Rapdis) 10 mg TRANSLINGU BEDTIME [facility] Last Admin: 10/29/24 21:00 Dose: 10 mg Trazodone HCl (Trazodone Hcl 50 Mg Tablet) 50 mg PO BEDTIME MRX1 PRN PRN Reason: Insomnia Allergies Allergies Allergy/AdvReac Type Severity Reaction Status Date / Time No Known Allergies Allergy Verified 10/25/24 18:44 Assessment & Plan Assessment & Plan (1) Schizoaffective disorder: Status: Acute Code(s): F25.9 - Schizoaffective disorder, unspecified Assessment and Plan: bipolar type with erotomanic and grandiose of delusions of having a lot of money (2) Mild cognitive impairment: Status: Acute Code(s): G31.84 - Mild cognitive impairment of uncertain or unknown etiology Plan Mrs. Jaime is a 63 year-old woman who was brought via EMS after neighbor called police reporting patient was [place] doors. She presents with erotomanic delusions of being to someone she is not and reports is planning to move in with this person despite reporting she has not seen this person in one year and has not talked with him. She somehow believes this person is waiting for her. Collateral information from family (nephew) who reports pt has hx of delusions related to being romantically involved with someone she is not (erotomanic delusions). Hx of multiple psychiatric admission. She had 2 inpt psychiatric admission last year. We discussed risks, benefits and alternative treatment options. continue current medications. /- Needs a mood stabilizer. She used to be on depakote- note elevation in LFTs. It seems lithium was most effective mood stabilizer but d/c due to underlying CKD. May consider carbamazepine. continue olanzapine, but may also consider different antipsychotic with FAIRCHILD formulation and less impact on liver function. Will check hep panel given elevated LFTs. It does seem from records from [facility], elevation is not new but no additional testing completed nor explanation was given. 4 d/c topamax, start carbamazepine 100mg po BID. increase olanzapine 5mg po daily and 10mg po qhs. 10/29 increase carbamazepine 200mg po BID. continue olanzapine. 10/30 continue tx Reason for continued inpatient stay Substantial Risk for: rapid decompensation Time Spent With Patient Time: Total time managing care of this patient today ____ minutes.
[2024-10-30 19:44] VITALS: BP 132/76; PULSE 86; RESP 18; TEMP 36.1; O2SAT 98
[2024-10-30] MEDS: OLANZapine ODT 10 MG TAB.RAPDIS TRANSLINGU (20:22)
[2024-10-30] MEDS: Atorvastatin Calcium 10 MG TABLET PO (20:23)
[2024-10-31 08:00] VITALS: BP 103/65; PULSE 92; RESP 16; TEMP 36.6; O2SAT 95
[2024-10-31] MEDS: Cholestyramine (With Sugar) 4 GM POWD.PACK PO (08:32)
[2024-10-31] MEDS: carBAMazepine 100 MG TAB.CHEW 200 MG PO ×2 (08:32→20:27)
[2024-10-31] MEDS: clonazePAM 0.5 MG TABLET PO ×2 (08:32→20:27)
[2024-10-31] MEDS: Fenofibrate 54 MG TABLET PO (08:32)
[2024-10-31] MEDS: OLANZapine 5 MG TABLET PO (08:32)
--- NOTE | 2024-10-31 09:21 | P.PNPSI_ITS ---
Subjective Subjective Date of Service: 10/31/24 Reason For Visit: Schizoaffective disorder Bipolar type Interim History: Today: Doing very good. Hoping for good news . Patient visible on unit. Met with her in her room. Reports mood as wonderful . Feels she is ready and is eager for discharge. Briefly mentioned incidents that led to admission to hospital. ?I was knocking on neighbors doors... They said I was disturbing the peace I was not . She says that her landlord had checked up on her and suggested she might need medications looked at. She states that her mood has been stable, ?I do not want to hurt anyone not having any delusions, no hallucinations, I am eating and sleeping?. She denies any thoughts of hurting herself or others. She reports being med compliant, denies any adverse effects. She complains of having intermittent gas. Denies any other concerns at this time aside from hoping she can get discharged today or tomorrow. Friday: Met with pt, reviewed with her team. Pt is active, engaged, some confusion noted, wanting to go home, as she has several tasks to attend to. She presents with a positive demeanor and is attentive to milieu activity and to others needs. Review of Systems Review of Systems Denies Mental Status Exam Mental Status Exam Narrative: Appearance: wearing hospital gown, fair hygiene, in NAD Behavior: cooperative Psychomotor: no agitation or retardation noted Speech: clear, normal rate/rhythm/volume, spontaneous TP: linear TC: preoccupied about reuniting with soon Mood: good Affect: congruent, smiles at times SI: denies HI: denies VH/AH: no overt signs at the moment Delusions: erotomanic delusions Insight/judgment: impaired x 2 Memory/cog: alert, oriented to place, month, year not so much situation Patient Appearance: Appropriate Patient Orientation: Person and Place Level of Consciousness: Alert Patient Behavior: Talkative and Good Eye Contact Mood Description: Calm and Cheerful Affect Description: Calm Patient Cognition Impaired: Yes Ability to Follow Directions: Good Speech Pattern: Spontaneous Speech Memory Description: Remote Impaired Diagnostics Vital Signs (24Hr): Vital Signs - 24 hr 10/30/24 19:44 10/31/24 08:00 Temperature 96.9 F 97.8 F Pulse Rate 86 92 Respiratory Rate 18 16 Blood Pressure 132/76 103/65 Pulse Oximetry 98 95 Oxygen Delivery Method Room Air Room Air BMI result Body Mass Index 31.0 Labs 10/25/24 20:16 Medications Medications Current Medications Acetaminophen (Acetaminophen 325 Mg Tablet) 650 mg PO Q6H PRN PRN Reason: Headache/Pain, Scale 1-10 Al Hydroxide/Mg Hydroxide (Magnesium Hydrox/Alum Hydrox 30 Ml Oral.Susp) 30 ml PO Q6H PRN PRN Reason: Heartburn/Nausea Albuterol Sulfate (Albuterol Sulfate 90 Mcg 8 Gm Inhaler) 2 puff INHALE Q4H PRN PRN Reason: Wheezing Last Admin: 10/29/24 08:35 Dose: 2 puff Atorvastatin Calcium (Atorvastatin Calcium 10 Mg Tablet) 10 mg PO BEDTIME [facility] Last Admin: 10/30/24 20:23 Dose: 10 mg Carbamazepine (Carbamazepine 100 Mg Tab.Chew) 200 mg PO BID [facility] Last Admin: 10/31/24 08:32 Dose: 200 mg Cholestyramine Resin (Cholestyramine (With Sugar) 4 Gm Powd.Pack) 4 gm PO DAILY [facility] Last Admin: 10/31/24 08:32 Dose: 4 gm Clonazepam (Clonazepam 0.5 Mg Tablet) 0.5 mg PO BID [facility] Last Admin: 10/31/24 08:32 Dose: 0.5 mg Fenofibrate (Fenofibrate 54 Mg Tablet) 54 mg PO DAILY [facility] Last Admin: 10/31/24 08:32 Dose: 54 mg Fluticasone/Vilanterol (Fluticasone/Vilanterol 100/25 Blst.W.Dev) 1 puff INHALE RDAILY [facility] Last Admin: 10/31/24 08:32 Dose: Not Given Hydroxyzine HCl (Hydroxyzine Hcl 25 Mg Tablet) 25 mg PO Q6H PRN PRN Reason: mild anxiety Magnesium Hydroxide (Milk Of Magnesia 30 Ml Oral.Susp) 30 ml PO DAILY PRN PRN Reason: Constipation Nicotine Polacrilex (Nicotine Polacrilex 2 Mg Gum) 4 mg BUCCAL Q2H PRN PRN Reason: Nicotine Cravings Olanzapine (Olanzapine 5 Mg Tablet) 5 mg PO DAILY [facility] Last Admin: 10/31/24 08:32 Dose: 5 mg Olanzapine (Olanzapine Odt 10 Mg Tab.Rapdis) 10 mg TRANSLINGU BEDTIME [facility] Last Admin: 10/30/24 20:22 Dose: 10 mg Trazodone HCl (Trazodone Hcl 50 Mg Tablet) 50 mg PO BEDTIME MRX1 PRN PRN Reason: Insomnia Allergies Allergies Allergy/AdvReac Type Severity Reaction Status Date / Time No Known Allergies Allergy Verified 10/25/24 18:44 Assessment & Plan Assessment & Plan (1) Schizoaffective disorder: Status: Acute Code(s): F25.9 - Schizoaffective disorder, unspecified Assessment and Plan: bipolar type with erotomanic and grandiose of delusions of having a lot of money (2) Mild cognitive impairment: Status: Acute Code(s): G31.84 - Mild cognitive impairment of uncertain or unknown etiology Plan Mrs. Jaime is a 63 year-old woman who was brought via EMS after neighbor called police reporting patient was [place] doors. She presents with erotomanic delusions of being to someone she is not and reports is planning to move in with this person despite reporting she has not seen this person in one year and has not talked with him. She somehow believes this person is waiting for her. Collateral information from family (nephew) who reports pt has hx of delusions related to being romantically involved with someone she is not (erotomanic delusions). Hx of multiple psychiatric admission. She had 2 inpt psychiatric admission last year. We discussed risks, benefits and alternative treatment options. continue current medications. 4/- Needs a mood stabilizer. She used to be on depakote- note elevation in LFTs. It seems lithium was most effective mood stabilizer but d/c due to underlying CKD. May consider carbamazepine. continue olanzapine, but may also consider different antipsychotic with FAIRCHILD formulation and less impact on liver function. Will check hep panel given elevated LFTs. It does seem from records from [facility], elevation is not new but no additional testing completed nor explanation was given. 10/28 d/c topamax, start carbamazepine 100mg po BID. increase olanzapine 5mg po daily and 10mg po qhs. 10/29 increase carbamazepine 200mg po BID. continue olanzapine. 10/30 continue tx 10/31 cotinue tx Reason for continued inpatient stay Substantial Risk for: med/psych decompensation Time Spent With Patient Time: Total time managing care of this patient today ____ minutes.
[2024-10-31 20:00] VITALS: BP 121/69; PULSE 92; RESP 16; TEMP 36.8; O2SAT 97
[2024-10-31] MEDS: OLANZapine ODT 10 MG TAB.RAPDIS TRANSLINGU (20:27)
[2024-10-31] MEDS: Atorvastatin Calcium 10 MG TABLET PO (20:27)
[2024-11-01 08:00] VITALS: BP 109/64; PULSE 86; RESP 18; TEMP 36.4; O2SAT 96
--- NOTE | 2024-11-01 08:32 | P.PNPSI_ITS ---
Subjective Subjective Date of Service: 11/01/24 Reason For Visit: Schizoaffective disorder Bipolar type Subjective Notes: Conditional Voluntary Interim History: Pt slept through the night. She reports doing well. Although continues to report plan to go find her at a house she says she owns in [place], which is not the case. She is taking medications. She is waking with torso leaning forward. She denies dizziness. She is visible on the unit, social with select peers. No behavioral concerns. Mental Status Exam Mental Status Exam Narrative: Appearance: wearing hospital gown, fair hygiene, in NAD Behavior: cooperative Psychomotor: no agitation or retardation noted Speech: clear, normal rate/rhythm/volume, spontaneous TP: linear TC: preoccupied about reuniting with soon Mood: good Affect: congruent, smiles at times SI: denies HI: denies VH/AH: no overt signs at the moment Delusions: erotomanic delusions Insight/judgment: impaired x 2 Memory/cog: alert, oriented to place, month, year not so much situation Diagnostics Vital Signs (24Hr): Vital Signs - 24 hr 10/31/24 20:00 Temperature 98.2 F Pulse Rate 92 Respiratory Rate 16 Blood Pressure 121/69 Pulse Oximetry 97 Oxygen Delivery Method Room Air BMI result Body Mass Index 31.0 Labs 10/25/24 20:16 Medications Medications Current Medications Acetaminophen (Acetaminophen 325 Mg Tablet) 650 mg PO Q6H PRN PRN Reason: Headache/Pain, Scale 1-10 Al Hydroxide/Mg Hydroxide (Magnesium Hydrox/Alum Hydrox 30 Ml Oral.Susp) 30 ml PO Q6H PRN PRN Reason: Heartburn/Nausea Albuterol Sulfate (Albuterol Sulfate 90 Mcg 8 Gm Inhaler) 2 puff INHALE Q4H PRN PRN Reason: Wheezing Last Admin: 10/29/24 08:35 Dose: 2 puff Atorvastatin Calcium (Atorvastatin Calcium 10 Mg Tablet) 10 mg PO BEDTIME [facility] Last Admin: 10/31/24 20:27 Dose: 10 mg Carbamazepine (Carbamazepine 100 Mg Tab.Chew) 200 mg PO BID [facility] Last Admin: 10/31/24 20:27 Dose: 200 mg Cholestyramine Resin (Cholestyramine (With Sugar) 4 Gm Powd.Pack) 4 gm PO DAILY [facility] Last Admin: 10/31/24 08:32 Dose: 4 gm Clonazepam (Clonazepam 0.5 Mg Tablet) 0.5 mg PO BID [facility] Last Admin: 10/31/24 20:27 Dose: 0.5 mg Fenofibrate (Fenofibrate 54 Mg Tablet) 54 mg PO DAILY [facility] Last Admin: 10/31/24 08:32 Dose: 54 mg Fluticasone/Vilanterol (Fluticasone/Vilanterol 100/25 Blst.W.Dev) 1 puff INHALE RDAILY [facility] Last Admin: 10/31/24 08:32 Dose: Not Given Hydroxyzine HCl (Hydroxyzine Hcl 25 Mg Tablet) 25 mg PO Q6H PRN PRN Reason: mild anxiety Magnesium Hydroxide (Milk Of Magnesia 30 Ml Oral.Susp) 30 ml PO DAILY PRN PRN Reason: Constipation Nicotine Polacrilex (Nicotine Polacrilex 2 Mg Gum) 4 mg BUCCAL Q2H PRN PRN Reason: Nicotine Cravings Olanzapine (Olanzapine 5 Mg Tablet) 5 mg PO DAILY [facility] Last Admin: 10/31/24 08:32 Dose: 5 mg Olanzapine (Olanzapine Odt 10 Mg Tab.Rapdis) 10 mg TRANSLINGU BEDTIME [facility] Last Admin: 10/31/24 20:27 Dose: 10 mg Trazodone HCl (Trazodone Hcl 50 Mg Tablet) 50 mg PO BEDTIME MRX1 PRN PRN Reason: Insomnia Allergies Allergies Allergy/AdvReac Type Severity Reaction Status Date / Time No Known Allergies Allergy Verified 10/25/24 18:44 Assessment & Plan Assessment & Plan (1) Schizoaffective disorder: Status: Acute Code(s): F25.9 - Schizoaffective disorder, unspecified Assessment and Plan: bipolar type with erotomanic and grandiose of delusions of having a lot of money (2) Mild cognitive impairment: Status: Acute Code(s): G31.84 - Mild cognitive impairment of uncertain or unknown etiology Plan Mrs. Jaime is a 63 year-old woman who was brought via EMS after neighbor called police reporting patient was [place] the [place] knocking doors. She presents with erotomanic delusions of being to someone she is not and reports is planning to move in with this person despite reporting she has not seen this person in one year and has not talked with him. She somehow believes this person is waiting for her. Collateral information from family (nephew) who reports pt has hx of delusions related to being romantically involved with someone she is not (erotomanic delusions). Hx of multiple psychiatric admission. She had 2 inpt psychiatric admission last year. We discussed risks, benefits and alternative treatment options. continue current medications. /- Needs a mood stabilizer. She used to be on depakote- note elevation in LFTs. It seems lithium was most effective mood stabilizer but d/c due to underlying CKD. May consider carbamazepine. continue olanzapine, but may also consider different antipsychotic with FAIRCHILD formulation and less impact on liver function. Will check hep panel given elevated LFTs. It does seem from records from [facility], elevation is not new but no additional testing completed nor explanation was given. 10/28 d/c topamax, start carbamazepine 100mg po BID. increase olanzapine 5mg po daily and 10mg po qhs. 10/29 increase carbamazepine 200mg po BID. continue olanzapine. 10/30 continue tx 10/31 cotinue tx 11/01 continue tx. will check tegretol level in few days along with electrolytes. Reason for continued inpatient stay Substantial Risk for: inability to function Time Spent With Patient Time: Total time managing care of this patient today ____ minutes.
[2024-11-01] MEDS: Fluticasone/Vilanterol 100/25 BLST.W.DEV 1 PUFF INHALE (09:09)
[2024-11-01] MEDS: OLANZapine 5 MG TABLET PO (09:10)
[2024-11-01] MEDS: carBAMazepine 100 MG TAB.CHEW 200 MG PO ×2 (09:10→20:31)
[2024-11-01] MEDS: Fenofibrate 54 MG TABLET PO (09:10)
[2024-11-01] MEDS: Cholestyramine (With Sugar) 4 GM POWD.PACK PO (09:11)
[2024-11-01] MEDS: clonazePAM 0.5 MG TABLET PO ×2 (09:11→20:31)
[2024-11-01] MEDS: Simethicone 80 MG TAB.CHEW PO (16:20)
[2024-11-01 20:00] VITALS: BP 100/56; PULSE 80; TEMP 36.4; O2SAT 96
[2024-11-01] MEDS: Atorvastatin Calcium 10 MG TABLET PO (20:30)
[2024-11-01] MEDS: OLANZapine ODT 10 MG TAB.RAPDIS TRANSLINGU (20:31)
[2024-11-02 08:03] VITALS: BP 109/66; PULSE 86; RESP 20; TEMP 36.1; O2SAT 98
[2024-11-02] MEDS: Fenofibrate 54 MG TABLET PO (08:07)
[2024-11-02] MEDS: OLANZapine 5 MG TABLET PO (08:08)
[2024-11-02] MEDS: carBAMazepine 100 MG TAB.CHEW 200 MG PO ×2 (08:08→21:18)
[2024-11-02] MEDS: Cholestyramine (With Sugar) 4 GM POWD.PACK PO (08:09)
[2024-11-02] MEDS: Simethicone 80 MG TAB.CHEW PO (08:59)
[2024-11-02 20:00] VITALS: BP 118/69; PULSE 105; RESP 16; TEMP 36.4; O2SAT 96
[2024-11-02] MEDS: clonazePAM 0.5 MG TABLET PO (21:18)
[2024-11-02] MEDS: Atorvastatin Calcium 10 MG TABLET PO (21:18)
[2024-11-02] MEDS: OLANZapine ODT 10 MG TAB.RAPDIS TRANSLINGU (21:18)
--- NOTE | 2024-11-02 22:41 | P.PNPSI_ITS ---
Subjective Subjective Date of Service: 11/02/24 Reason For Visit: Schizoaffective disorder Bipolar type Subjective Notes: Conditional Voluntary Interim History: Pt slept through the night. She reports she is feeling well. She reports she was told that her ex is in her house. She reports she knows this information because her current , who does not exist, told her this. She reports she is eager to see him but does report that she is in agreement to go back to her apartment in [place]. She is taking medications, pending tegretol level. Review of Systems Review of Systems Denies Mental Status Exam Mental Status Exam Narrative: Appearance: wearing hospital gown, fair hygiene, in NAD Behavior: cooperative Psychomotor: no agitation or retardation noted Speech: clear, normal rate/rhythm/volume, spontaneous TP: linear TC: preoccupied about reuniting with soon Mood: good Affect: congruent, smiles at times SI: denies HI: denies VH/AH: no overt signs at the moment Delusions: erotomanic delusions Insight/judgment: impaired x 2 Memory/cog: alert, oriented to place, month, year not so much situation Diagnostics Vital Signs (24Hr): Vital Signs - 24 hr 11/02/24 08:03 Temperature 96.9 F Pulse Rate 86 Respiratory Rate 20 Blood Pressure 109/66 Pulse Oximetry 98 Oxygen Delivery Method Room Air BMI result Body Mass Index 31.0 Labs 10/25/24 20:16 Medications Medications Current Medications Acetaminophen (Acetaminophen 325 Mg Tablet) 650 mg PO Q6H PRN PRN Reason: Headache/Pain, Scale 1-10 Al Hydroxide/Mg Hydroxide (Magnesium Hydrox/Alum Hydrox 30 Ml Oral.Susp) 30 ml PO Q6H PRN PRN Reason: Heartburn/Nausea Albuterol Sulfate (Albuterol Sulfate 90 Mcg 8 Gm Inhaler) 2 puff INHALE Q4H PRN PRN Reason: Wheezing Last Admin: 10/29/24 08:35 Dose: 2 puff Artificial Tears (Artificial Tears 15 Ml Drops) 1 drop EYE-BOTH Q4H PRN PRN Reason: dry eyes Atorvastatin Calcium (Atorvastatin Calcium 10 Mg Tablet) 10 mg PO BEDTIME [facility] Last Admin: 11/02/24 21:18 Dose: 10 mg Carbamazepine (Carbamazepine 100 Mg Tab.Chew) 200 mg PO BID [facility] Last Admin: 11/02/24 21:18 Dose: 200 mg Cholestyramine Resin (Cholestyramine (With Sugar) 4 Gm Powd.Pack) 4 gm PO DAILY [facility] Last Admin: 11/02/24 08:09 Dose: 4 gm Clonazepam (Clonazepam 0.5 Mg Tablet) 0.5 mg PO BEDTIME [facility] Last Admin: 11/02/24 21:18 Dose: 0.5 mg Fenofibrate (Fenofibrate 54 Mg Tablet) 54 mg PO DAILY [facility] Last Admin: 11/02/24 08:07 Dose: 54 mg Fluticasone/Vilanterol (Fluticasone/Vilanterol 100/25 Blst.W.Dev) 1 puff INHALE RDAILY [facility] Last Admin: 11/02/24 09:00 Dose: Not Given Magnesium Hydroxide (Milk Of Magnesia 30 Ml Oral.Susp) 30 ml PO DAILY PRN PRN Reason: Constipation Nicotine Polacrilex (Nicotine Polacrilex 2 Mg Gum) 4 mg BUCCAL Q2H PRN PRN Reason: Nicotine Cravings Olanzapine (Olanzapine 5 Mg Tablet) 5 mg PO DAILY [facility] Last Admin: 11/02/24 08:08 Dose: 5 mg Olanzapine (Olanzapine Odt 10 Mg Tab.Rapdis) 10 mg TRANSLINGU BEDTIME [facility] Last Admin: 11/02/24 21:18 Dose: 10 mg Simethicone (Simethicone 80 Mg Tab.Chew) 80 mg PO QIDWMHS PRN PRN Reason: bloating Last Admin: 11/02/24 08:59 Dose: 80 mg Trazodone HCl (Trazodone Hcl 50 Mg Tablet) 50 mg PO BEDTIME MRX1 PRN PRN Reason: Insomnia Allergies Allergies Allergy/AdvReac Type Severity Reaction Status Date / Time No Known Allergies Allergy Verified 10/25/24 18:44 Assessment & Plan Assessment & Plan (1) Schizoaffective disorder: Status: Acute Code(s): F25.9 - Schizoaffective disorder, unspecified Assessment and Plan: bipolar type with erotomanic and grandiose of delusions of having a lot of money (2) Mild cognitive impairment: Status: Acute Code(s): G31.84 - Mild cognitive impairment of uncertain or unknown etiology Plan Mrs. Jaime is a 63 year-old woman who was brought via EMS after neighbor called police reporting patient was [place] the [place] knocking doors. She presents with erotomanic delusions of being to someone she is not and reports is planning to move in with this person despite reporting she has not seen this person in one year and has not talked with him. She somehow believes this person is waiting for her. Collateral information from family (nephew) who reports pt has hx of delusions related to being romantically involved with someone she is not (erotomanic delusions). Hx of multiple psychiatric admission. She had 2 inpt psychiatric admission last year. We discussed risks, benefits and alternative treatment options. continue current medications. 4- Needs a mood stabilizer. She used to be on depakote- note elevation in LFTs. It seems lithium was most effective mood stabilizer but d/c due to underlying CKD. May consider carbamazepine. continue olanzapine, but may also consider different antipsychotic with FAIRCHILD formulation and less impact on liver function. Will check hep panel given elevated LFTs. It does seem from records from [facility], elevation is not new but no additional testing completed nor explanation was given. 10/28 d/c topamax, start carbamazepine 100mg po BID. increase olanzapine 5mg po daily and 10mg po qhs. 10/29 increase carbamazepine 200mg po BID. continue olanzapine. 10/30 continue tx 10/31 cotinue tx 11/01 continue tx. will check tegretol level in few days along with electrolytes. 11/02 continue tx. Reason for continued inpatient stay Substantial Risk for: inability to function Time Spent With Patient Time: Total time managing care of this patient today ____ minutes.
[2024-11-03 08:45] VITALS: BP 128/65; PULSE 96; RESP 18; TEMP 36.7; O2SAT 96
[2024-11-03] MEDS: Fluticasone/Vilanterol 100/25 BLST.W.DEV 1 PUFF INHALE (09:39)
[2024-11-03] MEDS: Fenofibrate 54 MG TABLET PO (09:40)
[2024-11-03] MEDS: OLANZapine 5 MG TABLET PO (09:40)
[2024-11-03] MEDS: Cholestyramine (With Sugar) 4 GM POWD.PACK PO (09:40)
[2024-11-03] MEDS: carBAMazepine 100 MG TAB.CHEW 200 MG PO ×2 (09:40→21:49)
--- NOTE | 2024-11-03 14:32 | HO.PSYCHPN ---
Subjective Subjective Date of Service: 11/03/24 Reason For Visit: Schizoaffective disorder Bipolar type Subjective Notes: Conditional Voluntary Interim History: Pt slept through the night. She reports she is feeling well. She does present slightly overly bright. She reports she is doing well with medications, same delusions related to having a but reports that she agrees to return to her apartment in [place]. No behavioral concerns, social with peers. concern that she will be kept in hospital for months, but discussed plan to dc next week. She is taking medications, pending tegretol level. Review of Systems Review of Systems Denies Mental Status Exam Mental Status Exam Narrative: Appearance: wearing hospital gown, fair hygiene, in NAD Behavior: cooperative Psychomotor: no agitation or retardation noted Speech: clear, normal rate/rhythm/volume, spontaneous TP: linear TC: preoccupied about reuniting with soon Mood: good Affect: congruent, smiles at times SI: denies HI: denies VH/AH: no overt signs at the moment Delusions: erotomanic delusions Insight/judgment: impaired x 2 Memory/cog: alert, oriented to place, month, year not so much situation Diagnostics Vital Signs (24Hr): Vital Signs - 24 hr 11/02/24 20:00 11/03/24 08:45 Temperature 97.5 F 98.0 F Pulse Rate 105 H 96 Respiratory Rate 16 18 Blood Pressure 118/69 128/65 Pulse Oximetry 96 96 Oxygen Delivery Method Room Air Room Air BMI result Body Mass Index 31.0 Labs 11/04/24 07:35 11/04/24 07:35 Medications Medications Current Medications Acetaminophen (Acetaminophen 325 Mg Tablet) 650 mg PO Q6H PRN PRN Reason: Headache/Pain, Scale 1-10 Al Hydroxide/Mg Hydroxide (Magnesium Hydrox/Alum Hydrox 30 Ml Oral.Susp) 30 ml PO Q6H PRN PRN Reason: Heartburn/Nausea Albuterol Sulfate (Albuterol Sulfate 90 Mcg 8 Gm Inhaler) 2 puff INHALE Q4H PRN PRN Reason: Wheezing Last Admin: 10/29/24 08:35 Dose: 2 puff Artificial Tears (Artificial Tears 15 Ml Drops) 1 drop EYE-BOTH Q4H PRN PRN Reason: dry eyes Atorvastatin Calcium (Atorvastatin Calcium 10 Mg Tablet) 10 mg PO BEDTIME [facility] Last Admin: 11/02/24 21:18 Dose: 10 mg Carbamazepine (Carbamazepine 100 Mg Tab.Chew) 200 mg PO BID [facility] Last Admin: 11/03/24 09:40 Dose: 200 mg Cholestyramine Resin (Cholestyramine (With Sugar) 4 Gm Powd.Pack) 4 gm PO DAILY [facility] Last Admin: 11/03/24 09:40 Dose: 4 gm Clonazepam (Clonazepam 0.5 Mg Tablet) 0.5 mg PO BEDTIME [facility] Last Admin: 11/02/24 21:18 Dose: 0.5 mg Fenofibrate (Fenofibrate 54 Mg Tablet) 54 mg PO DAILY [facility] Last Admin: 11/03/24 09:40 Dose: 54 mg Fluticasone/Vilanterol (Fluticasone/Vilanterol 100/25 Blst.W.Dev) 1 puff INHALE RDAILY [facility] Last Admin: 11/03/24 09:39 Dose: 1 puff Magnesium Hydroxide (Milk Of Magnesia 30 Ml Oral.Susp) 30 ml PO DAILY PRN PRN Reason: Constipation Nicotine Polacrilex (Nicotine Polacrilex 2 Mg Gum) 4 mg BUCCAL Q2H PRN PRN Reason: Nicotine Cravings Olanzapine (Olanzapine 5 Mg Tablet) 5 mg PO DAILY [facility] Last Admin: 11/03/24 09:40 Dose: 5 mg Olanzapine (Olanzapine Odt 10 Mg Tab.Rapdis) 10 mg TRANSLINGU BEDTIME [facility] Last Admin: 11/02/24 21:18 Dose: 10 mg Simethicone (Simethicone 80 Mg Tab.Chew) 80 mg PO QIDWMHS PRN PRN Reason: bloating Last Admin: 11/02/24 08:59 Dose: 80 mg Trazodone HCl (Trazodone Hcl 50 Mg Tablet) 50 mg PO BEDTIME MR[facility] PRN PRN Reason: Insomnia Allergies Allergies Allergy/AdvReac Type Severity Reaction Status Date / Time No Known Allergies Allergy Verified 10/25/24 18:44 Assessment & Plan Assessment & Plan (1) Schizoaffective disorder: Status: Acute Code(s): F25.9 - Schizoaffective disorder, unspecified Assessment and Plan: bipolar type with erotomanic and grandiose of delusions of having a lot of money (2) Mild cognitive impairment: Status: Acute Code(s): G31.84 - Mild cognitive impairment of uncertain or unknown etiology Plan Mrs. Jaime is a 63 year-old woman who was brought via EMS after neighbor called police reporting patient was [place] knocking doors. She presents with erotomanic delusions of being to someone she is not and reports is planning to move in with this person despite reporting she has not seen this person in one year and has not talked with him. She somehow believes this person is waiting for her. Collateral information from family (nephew) who reports pt has hx of delusions related to being romantically involved with someone she is not (erotomanic delusions). Hx of multiple psychiatric admission. She had 2 inpt psychiatric admission last year. We discussed risks, benefits and alternative treatment options. continue current medications. 4/- Needs a mood stabilizer. She used to be on depakote- note elevation in LFTs. It seems lithium was most effective mood stabilizer but d/c due to underlying CKD. May consider carbamazepine. continue olanzapine, but may also consider different antipsychotic with FAIRCHILD formulation and less impact on liver function. Will check hep panel given elevated LFTs. It does seem from records from [facility], elevation is not new but no additional testing completed nor explanation was given. 10/28 d/c topamax, start carbamazepine 100mg po BID. increase olanzapine 5mg po daily and 10mg po qhs. 10/29 increase carbamazepine 200mg po BID. continue olanzapine. 10/30 continue tx 10/31 cotinue tx 11/01 continue tx. will check tegretol level in few days along with electrolytes. 11/02 continue tx. 11/03 continue tx.tegretol level slightly supratherapeutic, no signs of toxicity. no electrolyte abnormalities. increase olanzapine at bedtime to 15mg po qhs. Reason for continued inpatient stay Substantial Risk for: inability to function Time Spent With Patient Time: Total time managing care of this patient today ____ minutes.
[2024-11-03 20:00] VITALS: BP 112/70; PULSE 92; RESP 16; TEMP 36.4; O2SAT 96
[2024-11-03] MEDS: clonazePAM 0.5 MG TABLET PO (21:48)
[2024-11-03] MEDS: OLANZapine ODT 10 MG TAB.RAPDIS TRANSLINGU (21:49)
[2024-11-03] MEDS: Atorvastatin Calcium 10 MG TABLET PO (21:49)
[2024-11-04 07:00] VITALS: BMI 32.2
[2024-11-04 07:49] LABS: MANUAL DIFF FLAG NO
[2024-11-04 07:54] LABS: Basophils Absolute Auto 0.1 X10*3/uL (0.0-0.2); Basophils Percent Auto 0.6 % (0-2); Eosinophils Absolute Auto 0.5 X10*3/uL (0.0-0.4); Eosinophils Percent Auto 6.7 % (0-4); Hematocrit 34.9 % (37.0-47.0); Hemoglobin 11.7 g/dl (12.0-16.0); Imm Gran Abs Auto 0.04 X10*3/uL (0.00-0.03); Imm Gran Pct Auto 0.5 % (0.0-0.4); Lymphocytes Absolute Auto 1.9 X10*3/uL (1.2-4.9); Lymphocytes Percent Auto 24.9 % (20-40); Mean Corpuscular HGB Conc 33.5 g/dl (31.0-35.0); Mean Corpuscular Hemoglobin 29.2 pg (27.0-33.0); Mean Platelet Volume 9.8 fL (9.4-12.3); Monocytes Absolute Auto 0.9 X10*3/uL (0.1-1.2); Monocytes Percent Auto 10.9 % (2-11); Neutrophils Absolute Auto 4.4 x10*3/uL (2.0-8.3); Neutrophils Percent Auto 56.4 % (45-73); Platelet Count 248 X10*3/uL (160-400); Red Blood Count 4.01 X10*6/uL (4.20-5.50); Red Cell Distribution Width 13.7 % (11.0-16.0); White Blood Count 7.8 X10*3/uL (4.8-10.8)
[2024-11-04 08:00] VITALS: BP 125/65; PULSE 80; RESP 16; TEMP 36.2; O2SAT 97
[2024-11-04 08:04] LABS: Alanine Aminotransferase 26 U/L (0-31); Albumin Level 3.7 g/dL (3.5-5.0); Alkaline Phosphatase 94 U/L (39-117); Anion Gap 10 (12-20); Aspartate Amino Transferase 26 U/L (5-31); Bilirubin Total 0.2 mg/dL (0.0-1.0); Blood Urea Nitrogen 27 mg/dL (9-16); Calcium 8.9 mg/dL (8.4-10.2); Carbamazepine Tegretol 13.1 mcg/mL (5.0-12.0); Carbon Dioxide 25 mmol/L (22-29); Chloride 110 mmol/L (96-108); Creatinine Clr Calc Pharmacy 41.3; Estimated Glomerular Filt Rate 51; Glucose Random 123 mg/dL (60-115); Potassium 4.8 mmol/L (3.3-5.1); Sodium 140 mmol/L (135-145); Total Protein 6.1 g/dL (6.5-8.0)
[2024-11-04] MEDS: Cholestyramine (With Sugar) 4 GM POWD.PACK PO (08:43)
[2024-11-04] MEDS: OLANZapine 5 MG TABLET PO (08:43)
[2024-11-04] MEDS: Fenofibrate 54 MG TABLET PO (08:43)
[2024-11-04] MEDS: carBAMazepine 100 MG TAB.CHEW 200 MG PO ×2 (08:43→20:49)
[2024-11-04] MEDS: Fluticasone/Vilanterol 100/25 BLST.W.DEV 1 PUFF INHALE (08:43)
[2024-11-04] MEDS: Loperamide HCl 2 MG CAPSULE PO ×3 (12:10→21:35)
[2024-11-04 20:00] VITALS: BP 136/77; PULSE 76; RESP 16; TEMP 36.1; O2SAT 99
[2024-11-04] MEDS: clonazePAM 0.5 MG TABLET PO (20:49)
[2024-11-04] MEDS: Atorvastatin Calcium 10 MG TABLET PO (20:49)
[2024-11-04] MEDS: OLANZapine ODT 10 MG TAB.RAPDIS 15 MG TRANSLINGU (20:50)
[2024-11-05 08:45] VITALS: BP 143/66; PULSE 83; RESP 16; O2SAT 94
[2024-11-05] MEDS: Fluticasone/Vilanterol 100/25 BLST.W.DEV 1 PUFF INHALE (09:20)
[2024-11-05] MEDS: carBAMazepine 100 MG TAB.CHEW 200 MG PO ×2 (09:20→20:50)
[2024-11-05] MEDS: Cholestyramine (With Sugar) 4 GM POWD.PACK PO (09:21)
[2024-11-05] MEDS: OLANZapine 5 MG TABLET PO (09:21)
[2024-11-05] MEDS: Fenofibrate 54 MG TABLET PO (09:21)
--- NOTE | 2024-11-05 10:21 | P.PNPSI_ITS ---
Subjective Subjective Date of Service: 11/05/24 Reason For Visit: Schizoaffective disorder Bipolar type Subjective Notes: Conditional Voluntary Interim History: Pt slept through the night. She is taking medications as prescribed. She reports she misses home and wants to go soon. She is visible on the unit. She attends some groups, not overly social but very pleasant on approach. She agrees to referal for VNA. Review of Systems Review of Systems Denies Mental Status Exam Mental Status Exam Narrative: Appearance: wearing hospital gown, fair hygiene, in NAD Behavior: cooperative Psychomotor: no agitation or retardation noted Speech: clear, normal rate/rhythm/volume, spontaneous TP: linear TC: preoccupied about reuniting with soon Mood: good Affect: congruent, smiles at times SI: denies HI: denies VH/AH: no overt signs at the moment Delusions: erotomanic delusions Insight/judgment: impaired x 2 Memory/cog: alert, oriented to place, month, year not so much situation Diagnostics Vital Signs (24Hr): Vital Signs - 24 hr 11/04/24 20:00 11/05/24 08:45 Temperature 97 F Pulse Rate 76 83 Respiratory Rate 16 16 Blood Pressure 136/77 143/66 H Pulse Oximetry 99 94 Oxygen Delivery Method Room Air BMI result Body Mass Index 32.2 Labs 11/04/24 07:35 11/04/24 07:35 Labs: Laboratory Results - last 48 hr 11/04/24 07:35 WBC 7.8 RBC 4.01 L Hgb 11.7 L Hct 34.9 L MCV 87.0 MCH 29.2 MCHC 33.5 RDW 13.7 Plt Count 248 MPV 9.8 Immature Gran % (Auto) 0.5 H Neut % (Auto) 56.4 Lymph % (Auto) 24.9 Nicholas % (Auto) 10.9 Eos % (Auto) 6.7 H Baso % (Auto) 0.6 Lymph # (Auto) 1.9 Nicholas # (Auto) 0.9 Eos # (Auto) 0.5 H Baso # (Auto) 0.1 Abs Immat Gran (auto) 0.04 H Absolute Neuts (auto) 4.4 Absolute Nucleated RBC 0.000 Nucleated RBC % (auto) 0.0 Sodium 140 Potassium 4.8 Chloride 110 H Carbon Dioxide 25 Anion Gap 10 L BUN 27 H Creatinine 1.08 Estim Creat Clear Calc 41.3 Estimated GFR 51 Random Glucose 123 H Calcium 8.9 D Total Bilirubin 0.2 AST 26 ALT 26 Alkaline Phosphatase 94 Total Protein 6.1 L Albumin 3.7 Carbamazepine 13.1 H Medications Medications Current Medications Acetaminophen (Acetaminophen 325 Mg Tablet) 650 mg PO Q6H PRN PRN Reason: Headache/Pain, Scale 1-10 Al Hydroxide/Mg Hydroxide (Magnesium Hydrox/Alum Hydrox 30 Ml Oral.Susp) 30 ml PO Q6H PRN PRN Reason: Heartburn/Nausea Albuterol Sulfate (Albuterol Sulfate 90 Mcg 8 Gm Inhaler) 2 puff INHALE Q4H PRN PRN Reason: Wheezing Last Admin: 10/29/24 08:35 Dose: 2 puff Artificial Tears (Artificial Tears 15 Ml Drops) 1 drop EYE-BOTH Q4H PRN PRN Reason: dry eyes Atorvastatin Calcium (Atorvastatin Calcium 10 Mg Tablet) 10 mg PO BEDTIME [facility] Last Admin: 11/04/24 20:49 Dose: 10 mg Carbamazepine (Carbamazepine 100 Mg Tab.Chew) 200 mg PO BID [facility] Last Admin: 11/05/24 09:20 Dose: 200 mg Cholestyramine Resin (Cholestyramine (With Sugar) 4 Gm Powd.Pack) 4 gm PO DAILY [facility] Last Admin: 11/05/24 09:21 Dose: 4 gm Clonazepam (Clonazepam 0.5 Mg Tablet) 0.5 mg PO BEDTIME [facility] Last Admin: 11/04/24 20:49 Dose: 0.5 mg Fenofibrate (Fenofibrate 54 Mg Tablet) 54 mg PO DAILY [facility] Last Admin: 11/05/24 09:21 Dose: 54 mg Fluticasone/Vilanterol (Fluticasone/Vilanterol 100/25 Blst.W.Dev) 1 puff INHALE RDAILY [facility] Last Admin: 11/05/24 09:20 Dose: 1 puff Loperamide HCl (Loperamide Hcl 2 Mg Capsule) 2 mg PO Q4H PRN PRN Reason: loose stools Last Admin: 11/04/24 21:35 Dose: 2 mg Magnesium Hydroxide (Milk Of Magnesia 30 Ml Oral.Susp) 30 ml PO DAILY PRN PRN Reason: Constipation Nicotine Polacrilex (Nicotine Polacrilex 2 Mg Gum) 4 mg BUCCAL Q2H PRN PRN Reason: Nicotine Cravings Olanzapine (Olanzapine 5 Mg Tablet) 5 mg PO DAILY [facility] Last Admin: 11/05/24 09:21 Dose: 5 mg Olanzapine (Olanzapine Odt 10 Mg Tab.Rapdis) 15 mg TRANSLINGU BEDTIME [facility] Last Admin: 11/04/24 20:50 Dose: 15 mg Simethicone (Simethicone 80 Mg Tab.Chew) 80 mg PO QIDWMHS PRN PRN Reason: bloating Last Admin: 11/02/24 08:59 Dose: 80 mg Trazodone HCl (Trazodone Hcl 50 Mg Tablet) 50 mg PO BEDTIME MRX1 PRN PRN Reason: Insomnia Allergies Allergies Allergy/AdvReac Type Severity Reaction Status Date / Time No Known Allergies Allergy Verified 10/25/24 18:44 Assessment & Plan Assessment & Plan (1) Schizoaffective disorder: Status: Acute Code(s): F25.9 - Schizoaffective disorder, unspecified Assessment and Plan: bipolar type with erotomanic and grandiose of delusions of having a lot of money (2) Mild cognitive impairment: Status: Acute Code(s): G31.84 - Mild cognitive impairment of uncertain or unknown etiology Plan Mrs. Jaime is a 63 year-old woman who was brought via EMS after neighbor called police reporting patient was [place] the [place] knocking doors. She presents with erotomanic delusions of being to someone she is not and reports is planning to move in with this person despite reporting she has not seen this person in one year and has not talked with him. She somehow believes this person is waiting for her. Collateral information from family (nephew) who reports pt has hx of delusions related to being romantically involved with someone she is not (erotomanic delusions). Hx of multiple psychiatric admission. She had 2 inpt psychiatric admission last year. We discussed risks, benefits and alternative treatment options. continue current medications. 4/2- Needs a mood stabilizer. She used to be on depakote- note elevation in LFTs. It seems lithium was most effective mood stabilizer but d/c due to underlying CKD. May consider carbamazepine. continue olanzapine, but may also consider different antipsychotic with FAIRCHILD formulation and less impact on liver function. Will check hep panel given elevated LFTs. It does seem from records from [facility], elevation is not new but no additional testing completed nor explanation was given. 4/3 d/c topamax, start carbamazepine 100mg po BID. increase olanzapine 5mg po daily and 10mg po qhs. 10/29 increase carbamazepine 200mg po BID. continue olanzapine. 10/30 continue tx 10/31 cotinue tx 11/01 continue tx. will check tegretol level in few days along with electrolytes. 11/02 continue tx. 11/03 continue tx.tegretol level slightly supratherapeutic, no signs of toxicity. no electrolyte abnormalities. increase olanzapine at bedtime to 15mg po qhs. 11/04 continue tx. 11/05 continue tx. Reason for continued inpatient stay Substantial Risk for: inability to function Time Spent With Patient Time: Total time managing care of this patient today ____ minutes.
[2024-11-05] MEDS: Loperamide HCl 2 MG CAPSULE PO ×2 (10:47→16:31)
--- NOTE | 2024-11-05 11:50 | PC.NURSE ---
ACLS/MOCA scores: Pt scored a 12/30 on the MOCA indicating MODERATE cognitive impairment. Pt scored a 4.2 on the ACLS indicating the lower functioning end of MODERATE functional cognitive impairment and the need for 38% cognitive assistance for problem solving, safety and IADLs.
[2024-11-05 20:00] VITALS: BP 125/61; PULSE 75; RESP 16; TEMP 36.1; O2SAT 97
[2024-11-05] MEDS: Atorvastatin Calcium 10 MG TABLET PO (20:50)
[2024-11-05] MEDS: clonazePAM 0.5 MG TABLET PO (20:50)
[2024-11-05] MEDS: OLANZapine ODT 10 MG TAB.RAPDIS 15 MG TRANSLINGU (20:51)
[2024-11-06 08:00] VITALS: BP 110/71; PULSE 88; RESP 18; TEMP 36; O2SAT 98
[2024-11-06] MEDS: carBAMazepine 100 MG TAB.CHEW 200 MG PO ×2 (10:17→20:43)
[2024-11-06] MEDS: OLANZapine 5 MG TABLET PO (10:17)
[2024-11-06] MEDS: Fenofibrate 54 MG TABLET PO (10:17)
[2024-11-06] MEDS: Cholestyramine (With Sugar) 4 GM POWD.PACK PO (10:17)
[2024-11-06] MEDS: Fluticasone/Vilanterol 100/25 BLST.W.DEV 1 PUFF INHALE (10:35)
[2024-11-06] MEDS: Loperamide HCl 2 MG CAPSULE PO (11:30)
--- NOTE | 2024-11-06 16:32 | HO.PSYCHPN ---
Subjective Subjective Date of Service: 11/06/24 Reason For Visit: Schizoaffective disorder Bipolar type Interim History: very bright and friendly, reports she is doing well. no complaints or requests. i can't wait to get discharged next friday. per staff, no change in presentation. eating, drinking, sleeping. Mental Status Exam Mental Status Exam Narrative: Appearance: wearing hospital gown, fair hygiene, in NAD Behavior: cooperative Psychomotor: no agitation or retardation noted Speech: clear, normal rate/rhythm/volume, spontaneous TP: linear TC: discharge Mood: good Affect: congruent, smiles SI: denies HI: denies VH/AH: no overt signs at the moment Delusions: none expressed Insight/judgment: impaired x 2 Memory/cog: alert, oriented to place, month, year not so much situation Diagnostics Vital Signs (24Hr): Vital Signs - 24 hr 11/05/24 20:00 11/06/24 08:00 Temperature 96.9 F 96.8 F Pulse Rate 75 88 Respiratory Rate 16 18 Blood Pressure 125/61 110/71 Pulse Oximetry 97 98 Oxygen Delivery Method Room Air Room Air BMI result Body Mass Index 32.2 Labs 11/04/24 07:35 11/04/24 07:35 Medications Medications Current Medications Acetaminophen (Acetaminophen 325 Mg Tablet) 650 mg PO Q6H PRN PRN Reason: Headache/Pain, Scale 1-10 Al Hydroxide/Mg Hydroxide (Magnesium Hydrox/Alum Hydrox 30 Ml Oral.Susp) 30 ml PO Q6H PRN PRN Reason: Heartburn/Nausea Albuterol Sulfate (Albuterol Sulfate 90 Mcg 8 Gm Inhaler) 2 puff INHALE Q4H PRN PRN Reason: Wheezing Last Admin: 10/29/24 08:35 Dose: 2 puff Artificial Tears (Artificial Tears 15 Ml Drops) 1 drop EYE-BOTH Q4H PRN PRN Reason: dry eyes Atorvastatin Calcium (Atorvastatin Calcium 10 Mg Tablet) 10 mg PO BEDTIME [facility] Last Admin: 11/05/24 20:50 Dose: 10 mg Carbamazepine (Carbamazepine 100 Mg Tab.Chew) 200 mg PO BID [facility] Last Admin: 11/06/24 10:17 Dose: 200 mg Cholestyramine Resin (Cholestyramine (With Sugar) 4 Gm Powd.Pack) 4 gm PO DAILY [facility] Last Admin: 11/06/24 10:17 Dose: 4 gm Clonazepam (Clonazepam 0.5 Mg Tablet) 0.5 mg PO BEDTIME [facility] Last Admin: 11/05/24 20:50 Dose: 0.5 mg Fenofibrate (Fenofibrate 54 Mg Tablet) 54 mg PO DAILY [facility] Last Admin: 11/06/24 10:17 Dose: 54 mg Fluticasone/Vilanterol (Fluticasone/Vilanterol 100/25 Blst.W.Dev) 1 puff INHALE RDAILY [facility] Last Admin: 11/06/24 10:35 Dose: 1 puff Loperamide HCl (Loperamide Hcl 2 Mg Capsule) 2 mg PO Q4H PRN PRN Reason: loose stools Last Admin: 11/06/24 11:30 Dose: 2 mg Magnesium Hydroxide (Milk Of Magnesia 30 Ml Oral.Susp) 30 ml PO DAILY PRN PRN Reason: Constipation Nicotine Polacrilex (Nicotine Polacrilex 2 Mg Gum) 4 mg BUCCAL Q2H PRN PRN Reason: Nicotine Cravings Olanzapine (Olanzapine 5 Mg Tablet) 5 mg PO DAILY [facility] Last Admin: 11/06/24 10:17 Dose: 5 mg Olanzapine (Olanzapine Odt 10 Mg Tab.Rapdis) 15 mg TRANSLINGU BEDTIME [facility] Last Admin: 11/05/24 20:51 Dose: 15 mg Simethicone (Simethicone 80 Mg Tab.Chew) 80 mg PO QIDWMHS PRN PRN Reason: bloating Last Admin: 11/02/24 08:59 Dose: 80 mg Trazodone HCl (Trazodone Hcl 50 Mg Tablet) 50 mg PO BEDTIME MRX1 PRN PRN Reason: Insomnia Allergies Allergies Allergy/AdvReac Type Severity Reaction Status Date / Time No Known Allergies Allergy Verified 10/25/24 18:44 Assessment & Plan Assessment & Plan (1) Schizoaffective disorder: Status: Acute Code(s): F25.9 - Schizoaffective disorder, unspecified Assessment and Plan: bipolar type with erotomanic and grandiose of delusions of having a lot of money (2) Mild cognitive impairment: Status: Acute Code(s): G31.84 - Mild cognitive impairment of uncertain or unknown etiology Plan Mrs. Jaime is a 63 year-old woman who was brought via EMS after neighbor called police reporting patient was [place] the [place] knocking doors. She presents with erotomanic delusions of being to someone she is not and reports is planning to move in with this person despite reporting she has not seen this person in one year and has not talked with him. She somehow believes this person is waiting for her. Collateral information from family (nephew) who reports pt has hx of delusions related to being romantically involved with someone she is not (erotomanic delusions). Hx of multiple psychiatric admission. She had 2 inpt psychiatric admission last year. We discussed risks, benefits and alternative treatment options. continue current medications. 10/27- Needs a mood stabilizer. She used to be on depakote- note elevation in LFTs. It seems lithium was most effective mood stabilizer but d/c due to underlying CKD. May consider carbamazepine. continue olanzapine, but may also consider different antipsychotic with FAIRCHILD formulation and less impact on liver function. Will check hep panel given elevated LFTs. It does seem from records from [facility], elevation is not new but no additional testing completed nor explanation was given. 10/28 d/c topamax, start carbamazepine 100mg po BID. increase olanzapine 5mg po daily and 10mg po qhs. 10/29 increase carbamazepine 200mg po BID. continue olanzapine. 10/30 continue tx 10/31 cotinue tx 11/01 continue tx. will check tegretol level in few days along with electrolytes. 11/02 continue tx. 11/03 continue tx.tegretol level slightly supratherapeutic, no signs of toxicity. no electrolyte abnormalities. increase olanzapine at bedtime to 15mg po qhs. 11/04 continue tx. 11/05 continue tx. 11/06: very friendly and smiley. per staff, eating, sleeping, no issues. continue current mgmt. Reason for continued inpatient stay Substantial Risk for: inability to function Time Spent With Patient Time: Total time managing care of this patient today ____ minutes.
[2024-11-06 20:00] VITALS: BP 103/61; PULSE 89; RESP 16; TEMP 36.7; O2SAT 95
[2024-11-06] MEDS: clonazePAM 0.5 MG TABLET PO (20:43)
[2024-11-06] MEDS: Atorvastatin Calcium 10 MG TABLET PO (20:43)
[2024-11-06] MEDS: OLANZapine ODT 10 MG TAB.RAPDIS 15 MG TRANSLINGU (20:44)
[2024-11-07 08:00] VITALS: BP 109/68; PULSE 87; RESP 16; TEMP 36.2; O2SAT 96
[2024-11-07] MEDS: Fluticasone/Vilanterol 100/25 BLST.W.DEV 1 PUFF INHALE (08:41)
[2024-11-07] MEDS: Fenofibrate 54 MG TABLET PO (08:42)
[2024-11-07] MEDS: Cholestyramine (With Sugar) 4 GM POWD.PACK PO (08:42)
[2024-11-07] MEDS: carBAMazepine 100 MG TAB.CHEW 200 MG PO ×2 (08:42→20:38)
[2024-11-07] MEDS: OLANZapine 5 MG TABLET PO (08:42)
[2024-11-07] MEDS: Loperamide HCl 2 MG CAPSULE PO (13:52)
[2024-11-07 20:00] VITALS: BP 112/61; PULSE 80; RESP 17; TEMP 36.3; O2SAT 98
--- NOTE | 2024-11-07 20:22 | P.PNPSI_ITS ---
Subjective Subjective Date of Service: 11/07/24 Reason For Visit: Schizoaffective disorder Bipolar type Interim History: pleasant, gregarious, following MD around unit attempting to engage in conversation even while MD attempting to interview other patients. no complaints or requests, hoping for discharge soon. per staff, expressing delusions about mónica obleonarda, nightmares about the democratic and green party parties. Mental Status Exam Mental Status Exam Narrative: Appearance: wearing hospital gown, fair hygiene, in NAD Behavior: cooperative Psychomotor: no agitation or retardation noted Speech: clear, normal rate/rhythm/volume, spontaneous TP: linear TC: discharge Mood: good Affect: congruent, smiles SI: denies HI: denies VH/AH: no overt signs at the moment Delusions: none expressed Insight/judgment: impaired x 2 Memory/cog: alert, oriented to place, month, year not so much situation Diagnostics Vital Signs (24Hr): Vital Signs - 24 hr 11/07/24 08:00 Temperature 97.2 F Pulse Rate 87 Respiratory Rate 16 Blood Pressure 109/68 Pulse Oximetry 96 Oxygen Delivery Method Room Air BMI result Body Mass Index 32.2 Labs 11/04/24 07:35 11/04/24 07:35 Medications Medications Current Medications Acetaminophen (Acetaminophen 325 Mg Tablet) 650 mg PO Q6H PRN PRN Reason: Headache/Pain, Scale 1-10 Al Hydroxide/Mg Hydroxide (Magnesium Hydrox/Alum Hydrox 30 Ml Oral.Susp) 30 ml PO Q6H PRN PRN Reason: Heartburn/Nausea Albuterol Sulfate (Albuterol Sulfate 90 Mcg 8 Gm Inhaler) 2 puff INHALE Q4H PRN PRN Reason: Wheezing Last Admin: 10/29/24 08:35 Dose: 2 puff Artificial Tears (Artificial Tears 15 Ml Drops) 1 drop EYE-BOTH Q4H PRN PRN Reason: dry eyes Atorvastatin Calcium (Atorvastatin Calcium 10 Mg Tablet) 10 mg PO BEDTIME [facility] Last Admin: 11/06/24 20:43 Dose: 10 mg Carbamazepine (Carbamazepine 100 Mg Tab.Chew) 200 mg PO BID [facility] Last Admin: 11/07/24 08:42 Dose: 200 mg Cholestyramine Resin (Cholestyramine (With Sugar) 4 Gm Powd.Pack) 4 gm PO DAILY [facility] Last Admin: 11/07/24 08:42 Dose: 4 gm Fenofibrate (Fenofibrate 54 Mg Tablet) 54 mg PO DAILY [facility] Last Admin: 11/07/24 08:42 Dose: 54 mg Fluticasone/Vilanterol (Fluticasone/Vilanterol 100/25 Blst.W.Dev) 1 puff INHALE RDAILY [facility] Last Admin: 11/07/24 08:41 Dose: 1 puff Loperamide HCl (Loperamide Hcl 2 Mg Capsule) 2 mg PO Q4H PRN PRN Reason: loose stools Last Admin: 11/07/24 13:52 Dose: 2 mg Magnesium Hydroxide (Milk Of Magnesia 30 Ml Oral.Susp) 30 ml PO DAILY PRN PRN Reason: Constipation Nicotine Polacrilex (Nicotine Polacrilex 2 Mg Gum) 4 mg BUCCAL Q2H PRN PRN Reason: Nicotine Cravings Olanzapine (Olanzapine 5 Mg Tablet) 5 mg PO DAILY [facility] Last Admin: 11/07/24 08:42 Dose: 5 mg Olanzapine (Olanzapine Odt 10 Mg Tab.Rapdis) 15 mg TRANSLINGU BEDTIME [facility] Last Admin: 11/06/24 20:44 Dose: 15 mg Simethicone (Simethicone 80 Mg Tab.Chew) 80 mg PO QIDWMHS PRN PRN Reason: bloating Last Admin: 11/02/24 08:59 Dose: 80 mg Trazodone HCl (Trazodone Hcl 50 Mg Tablet) 50 mg PO BEDTIME MRX1 PRN PRN Reason: Insomnia Allergies Allergies Allergy/AdvReac Type Severity Reaction Status Date / Time No Known Allergies Allergy Verified 10/25/24 18:44 Assessment & Plan Assessment & Plan (1) Schizoaffective disorder: Status: Acute Code(s): F25.9 - Schizoaffective disorder, unspecified Assessment and Plan: bipolar type with erotomanic and grandiose of delusions of having a lot of money (2) Mild cognitive impairment: Status: Acute Code(s): G31.84 - Mild cognitive impairment of uncertain or unknown etiology Plan Mrs. Jaime is a 63 year-old woman who was brought via EMS after neighbor called police reporting patient was in the [place] knocking doors. She presents with erotomanic delusions of being to someone she is not and reports is planning to move in with this person despite reporting she has not seen this person in one year and has not talked with him. She somehow believes this person is waiting for her. Collateral information from family (nephew) who reports pt has hx of delusions related to being romantically involved with someone she is not (erotomanic delusions). Hx of multiple psychiatric admission. She had 2 inpt psychiatric admission last year. We discussed risks, benefits and alternative treatment options. continue current medications. 10/27- Needs a mood stabilizer. She used to be on depakote- note elevation in LFTs. It seems lithium was most effective mood stabilizer but d/c due to underlying CKD. May consider carbamazepine. continue olanzapine, but may also consider different antipsychotic with FAIRCHILD formulation and less impact on liver function. Will check hep panel given elevated LFTs. It does seem from records from [facility], elevation is not new but no additional testing completed nor explanation was given. 10/28 d/c topamax, start carbamazepine 100mg po BID. increase olanzapine 5mg po daily and 10mg po qhs. 10/29 increase carbamazepine 200mg po BID. continue olanzapine. 10/30 continue tx 10/31 cotinue tx 11/01 continue tx. will check tegretol level in few days along with electrolytes. 11/02 continue tx. 11/03 continue tx.tegretol level slightly supratherapeutic, no signs of toxicity. no electrolyte abnormalities. increase olanzapine at bedtime to 15mg po qhs. 11/04 continue tx. 11/05 continue tx. 11/06: very friendly and smiley. per staff, eating, sleeping, no issues. continue current mgmt. 11/07: no change in presentation. mood elevated, hyperverbal, poor attention to social cues. asking for discharge. Reason for continued inpatient stay Substantial Risk for: inability to function Time Spent With Patient Time: Total time managing care of this patient today ____ minutes.
[2024-11-07] MEDS: OLANZapine ODT 10 MG TAB.RAPDIS 15 MG TRANSLINGU (20:37)
[2024-11-07] MEDS: Atorvastatin Calcium 10 MG TABLET PO (20:38)
[2024-11-07] MEDS: Albuterol Sulfate 90 MCG 8 GM INHALER 2 PUFF INHALE (22:02)
[2024-11-08 07:55] VITALS: BP 114/71; PULSE 80; RESP 16; TEMP 36.7; O2SAT 98
[2024-11-08] MEDS: OLANZapine 5 MG TABLET PO (08:05)
[2024-11-08] MEDS: Cholestyramine (With Sugar) 4 GM POWD.PACK PO (08:05)
[2024-11-08] MEDS: carBAMazepine 100 MG TAB.CHEW 200 MG PO ×2 (08:05→21:08)
[2024-11-08] MEDS: Fenofibrate 54 MG TABLET PO (08:05)
--- NOTE | 2024-11-08 08:40 | P.PNPSI_ITS ---
Subjective Subjective Date of Service: 11/08/24 Reason For Visit: Schizoaffective disorder Bipolar type Subjective Notes: Conditional Voluntary Interim History: Pt sleeping through the night. She is taking medications as prescribed. She reports doing very well. She is looking forward to return home. She denies SI/HI. Slightly overly bright. She agrees to have VNA. She has been visible on the unit, social with select peers. No behavioral concerns. Mental Status Exam Mental Status Exam Narrative: Appearance: wearing hospital gown, fair hygiene, in NAD Behavior: cooperative Psychomotor: no agitation or retardation noted Speech: clear, normal rate/rhythm/volume, spontaneous TP: linear TC: discharge Mood: good Affect: congruent, smiles SI: denies HI: denies VH/AH: no overt signs at the moment Delusions: none expressed Insight/judgment: impaired x 2 Memory/cog: alert, oriented to place, month, year not so much situation Diagnostics Vital Signs (24Hr): Vital Signs - 24 hr 11/07/24 20:00 Temperature 97.4 F Pulse Rate 80 Respiratory Rate 17 Blood Pressure 112/61 Pulse Oximetry 98 Oxygen Delivery Method Room Air BMI result Body Mass Index 32.2 Labs 11/04/24 07:35 11/04/24 07:35 Medications Medications Current Medications Acetaminophen (Acetaminophen 325 Mg Tablet) 650 mg PO Q6H PRN PRN Reason: Headache/Pain, Scale 1-10 Al Hydroxide/Mg Hydroxide (Magnesium Hydrox/Alum Hydrox 30 Ml Oral.Susp) 30 ml PO Q6H PRN PRN Reason: Heartburn/Nausea Albuterol Sulfate (Albuterol Sulfate 90 Mcg 8 Gm Inhaler) 2 puff INHALE Q4H PRN PRN Reason: Wheezing Last Admin: 11/07/24 22:02 Dose: 2 puff Artificial Tears (Artificial Tears 15 Ml Drops) 1 drop EYE-BOTH Q4H PRN PRN Reason: dry eyes Atorvastatin Calcium (Atorvastatin Calcium 10 Mg Tablet) 10 mg PO BEDTIME [facility] Last Admin: 11/07/24 20:38 Dose: 10 mg Carbamazepine (Carbamazepine 100 Mg Tab.Chew) 200 mg PO BID [facility] Last Admin: 11/08/24 08:05 Dose: 200 mg Cholestyramine Resin (Cholestyramine (With Sugar) 4 Gm Powd.Pack) 4 gm PO DAILY [facility] Last Admin: 11/08/24 08:05 Dose: 4 gm Fenofibrate (Fenofibrate 54 Mg Tablet) 54 mg PO DAILY [facility] Last Admin: 11/08/24 08:05 Dose: 54 mg Fluticasone/Vilanterol (Fluticasone/Vilanterol 100/25 Blst.W.Dev) 1 puff INHALE RDAILY [facility] Last Admin: 11/08/24 08:08 Dose: Not Given Loperamide HCl (Loperamide Hcl 2 Mg Capsule) 2 mg PO Q4H PRN PRN Reason: loose stools Last Admin: 11/07/24 13:52 Dose: 2 mg Magnesium Hydroxide (Milk Of Magnesia 30 Ml Oral.Susp) 30 ml PO DAILY PRN PRN Reason: Constipation Nicotine Polacrilex (Nicotine Polacrilex 2 Mg Gum) 4 mg BUCCAL Q2H PRN PRN Reason: Nicotine Cravings Olanzapine (Olanzapine 5 Mg Tablet) 5 mg PO DAILY [facility] Last Admin: 11/08/24 08:05 Dose: 5 mg Olanzapine (Olanzapine Odt 10 Mg Tab.Rapdis) 15 mg TRANSLINGU BEDTIME [facility] Last Admin: 11/07/24 20:37 Dose: 15 mg Simethicone (Simethicone 80 Mg Tab.Chew) 80 mg PO QIDWMHS PRN PRN Reason: bloating Last Admin: 11/02/24 08:59 Dose: 80 mg Trazodone HCl (Trazodone Hcl 50 Mg Tablet) 50 mg PO BEDTIME MRX1 PRN PRN Reason: Insomnia Allergies Allergies Allergy/AdvReac Type Severity Reaction Status Date / Time No Known Allergies Allergy Verified 10/25/24 18:44 Assessment & Plan Assessment & Plan (1) Schizoaffective disorder: Status: Acute Code(s): F25.9 - Schizoaffective disorder, unspecified Assessment and Plan: bipolar type with erotomanic and grandiose of delusions of having a lot of money (2) Mild cognitive impairment: Status: Acute Code(s): G31.84 - Mild cognitive impairment of uncertain or unknown etiology Plan Mrs. Jaime is a 63 year-old woman who was brought via EMS after neighbor called police reporting patient was in the [place] knocking doors. She presents with erotomanic delusions of being to someone she is not and reports is planning to move in with this person despite reporting she has not seen this person in one year and has not talked with him. She somehow believes this person is waiting for her. Collateral information from family (nephew) who reports pt has hx of delusions related to being romantically involved with someone she is not (erotomanic delusions). Hx of multiple psychiatric admission. She had 2 inpt psychiatric admission last year. We discussed risks, benefits and alternative treatment options. continue current medications. 10/27- Needs a mood stabilizer. She used to be on depakote- note elevation in LFTs. It seems lithium was most effective mood stabilizer but d/c due to underlying CKD. May consider carbamazepine. continue olanzapine, but may also consider different antipsychotic with FAIRCHILD formulation and less impact on liver function. Will check hep panel given elevated LFTs. It does seem from records from [facility], elevation is not new but no additional testing completed nor explanation was given. 10/28 d/c topamax, start carbamazepine 100mg po BID. increase olanzapine 5mg po daily and 10mg po qhs. 10/29 increase carbamazepine 200mg po BID. continue olanzapine. 10/30 continue tx 10/31 cotinue tx 11/01 continue tx. will check tegretol level in few days along with electrolytes. 11/02 continue tx. 11/03 continue tx.tegretol level slightly supratherapeutic, no signs of toxicity. no electrolyte abnormalities. increase olanzapine at bedtime to 15mg po qhs. 11/04 continue tx. 11/05 continue tx. 11/06: very friendly and smiley. per staff, eating, sleeping, no issues. continue current mgmt. 11/07: no change in presentation. mood elevated, hyperverbal, poor attention to social cues. asking for discharge. 11/08 continue tx. plan for dc on 11/10/2024 Reason for continued inpatient stay Substantial Risk for: inability to function Time Spent With Patient Time: Total time managing care of this patient today ____ minutes.
[2024-11-08 20:00] VITALS: BP 124/75; PULSE 74; RESP 18; TEMP 36.2; O2SAT 97
[2024-11-08] MEDS: Atorvastatin Calcium 10 MG TABLET PO (21:08)
[2024-11-08] MEDS: OLANZapine ODT 10 MG TAB.RAPDIS 15 MG TRANSLINGU (21:08)
[2024-11-09] MEDS: Albuterol Sulfate 90 MCG 8 GM INHALER 2 PUFF INHALE (05:15)
[2024-11-09 07:55] VITALS: BP 134/76; PULSE 64; RESP 18; TEMP 36.4; O2SAT 98
[2024-11-09] MEDS: OLANZapine 5 MG TABLET PO (08:33)
[2024-11-09] MEDS: Fenofibrate 54 MG TABLET PO (08:33)
[2024-11-09] MEDS: Cholestyramine (With Sugar) 4 GM POWD.PACK PO (08:33)
[2024-11-09] MEDS: carBAMazepine 100 MG TAB.CHEW 200 MG PO ×2 (08:33→20:12)
--- NOTE | 2024-11-09 11:32 | P.PNPSI_ITS ---
Subjective Subjective Date of Service: 11/09/24 Reason For Visit: Schizoaffective disorder Bipolar type Subjective Notes: Conditional Voluntary Interim History: Pt sleeping through the night. She is taking medications as prescribed. She reports doing very well. She is looking forward to return home. She denies SI/HI. Slightly overly bright, very pleasant on approach. She agrees to have VNA. She has been visible on the unit, social with select peers. No behavioral concerns. Review of Systems Review of Systems Denies Mental Status Exam Mental Status Exam Narrative: Appearance: wearing hospital gown, fair hygiene, in NAD Behavior: cooperative Psychomotor: no agitation or retardation noted Speech: clear, normal rate/rhythm/volume, spontaneous TP: linear TC: discharge Mood: good Affect: congruent, smiles SI: denies HI: denies VH/AH: no overt signs at the moment Delusions: none expressed Insight/judgment: impaired x 2 Memory/cog: alert, oriented to place, month, year not so much situation Diagnostics Vital Signs (24Hr): Vital Signs - 24 hr 11/08/24 20:00 11/09/24 07:55 Temperature 97.2 F 97.6 F Pulse Rate 74 64 Respiratory Rate 18 18 Blood Pressure 124/75 134/76 Pulse Oximetry 97 98 Oxygen Delivery Method Room Air Room Air BMI result Body Mass Index 32.2 Labs 11/04/24 07:35 11/04/24 07:35 Medications Medications Current Medications Acetaminophen (Acetaminophen 325 Mg Tablet) 650 mg PO Q6H PRN PRN Reason: Headache/Pain, Scale 1-10 Al Hydroxide/Mg Hydroxide (Magnesium Hydrox/Alum Hydrox 30 Ml Oral.Susp) 30 ml PO Q6H PRN PRN Reason: Heartburn/Nausea Albuterol Sulfate (Albuterol Sulfate 90 Mcg 8 Gm Inhaler) 2 puff INHALE Q4H PRN PRN Reason: Wheezing Last Admin: 11/09/24 05:15 Dose: 2 puff Artificial Tears (Artificial Tears 15 Ml Drops) 1 drop EYE-BOTH Q4H PRN PRN Reason: dry eyes Atorvastatin Calcium (Atorvastatin Calcium 10 Mg Tablet) 10 mg PO BEDTIME [facility] Last Admin: 11/08/24 21:08 Dose: 10 mg Carbamazepine (Carbamazepine 100 Mg Tab.Chew) 200 mg PO BID [facility] Last Admin: 11/09/24 08:33 Dose: 200 mg Cholestyramine Resin (Cholestyramine (With Sugar) 4 Gm Powd.Pack) 4 gm PO DAILY [facility] Last Admin: 11/09/24 08:33 Dose: 4 gm Fenofibrate (Fenofibrate 54 Mg Tablet) 54 mg PO DAILY [facility] Last Admin: 11/09/24 08:33 Dose: 54 mg Fluticasone/Vilanterol (Fluticasone/Vilanterol 100/25 Blst.W.Dev) 1 puff INHALE RDAILY [facility] Last Admin: 11/09/24 08:34 Dose: Not Given Loperamide HCl (Loperamide Hcl 2 Mg Capsule) 2 mg PO Q4H PRN PRN Reason: loose stools Last Admin: 11/07/24 13:52 Dose: 2 mg Magnesium Hydroxide (Milk Of Magnesia 30 Ml Oral.Susp) 30 ml PO DAILY PRN PRN Reason: Constipation Nicotine Polacrilex (Nicotine Polacrilex 2 Mg Gum) 4 mg BUCCAL Q2H PRN PRN Reason: Nicotine Cravings Olanzapine (Olanzapine 5 Mg Tablet) 5 mg PO DAILY [facility] Last Admin: 11/09/24 08:33 Dose: 5 mg Olanzapine (Olanzapine Odt 10 Mg Tab.Rapdis) 15 mg TRANSLINGU BEDTIME [facility] Last Admin: 11/08/24 21:08 Dose: 15 mg Simethicone (Simethicone 80 Mg Tab.Chew) 80 mg PO QIDWMHS PRN PRN Reason: bloating Last Admin: 11/02/24 08:59 Dose: 80 mg Trazodone HCl (Trazodone Hcl 50 Mg Tablet) 50 mg PO BEDTIME MRX1 PRN PRN Reason: Insomnia Allergies Allergies Allergy/AdvReac Type Severity Reaction Status Date / Time No Known Allergies Allergy Verified 10/25/24 18:44 Assessment & Plan Assessment & Plan (1) Schizoaffective disorder: Status: Acute Code(s): F25.9 - Schizoaffective disorder, unspecified Assessment and Plan: bipolar type with erotomanic and grandiose of delusions of having a lot of money (2) Mild cognitive impairment: Status: Acute Code(s): G31.84 - Mild cognitive impairment of uncertain or unknown etiology Plan Mrs. Jaime is a 63 year-old woman who was brought via EMS after neighbor called police reporting patient was in the [place] knocking doors. She presents with erotomanic delusions of being to someone she is not and reports is planning to move in with this person despite reporting she has not seen this person in one year and has not talked with him. She somehow believes this person is waiting for her. Collateral information from family (nephew) who reports pt has hx of delusions related to being romantically involved with someone she is not (erotomanic delusions). Hx of multiple psychiatric admission. She had 2 inpt psychiatric admission last year. We discussed risks, benefits and alternative treatment options. continue current medications. 10/27- Needs a mood stabilizer. She used to be on depakote- note elevation in LFTs. It seems lithium was most effective mood stabilizer but d/c due to underlying CKD. May consider carbamazepine. continue olanzapine, but may also consider different antipsychotic with FAIRCHILD formulation and less impact on liver function. Will check hep panel given elevated LFTs. It does seem from records from [facility], elevation is not new but no additional testing completed nor explanation was given. 10/28 d/c topamax, start carbamazepine 100mg po BID. increase olanzapine 5mg po daily and 10mg po qhs. 10/29 increase carbamazepine 200mg po BID. continue olanzapine. 10/30 continue tx 10/31 cotinue tx 11/01 continue tx. will check tegretol level in few days along with electrolytes. 11/02 continue tx. 11/03 continue tx.tegretol level slightly supratherapeutic, no signs of toxicity. no electrolyte abnormalities. increase olanzapine at bedtime to 15mg po qhs. 11/04 continue tx. 11/05 continue tx. 11/06: very friendly and smiley. per staff, eating, sleeping, no issues. continue current mgmt. 11/07: no change in presentation. mood elevated, hyperverbal, poor attention to social cues. asking for discharge. 11/08 continue tx. plan for dc on 11/10/202411/09 continue tx. Reason for continued inpatient stay Substantial Risk for: stable for discharge Time Spent With Patient Time: Total time managing care of this patient today ____ minutes.
[2024-11-09 20:00] VITALS: BP 143/78; PULSE 89; RESP 18; TEMP 36.9; O2SAT 96
[2024-11-09] MEDS: OLANZapine ODT 10 MG TAB.RAPDIS 15 MG TRANSLINGU (20:12)
[2024-11-09] MEDS: Atorvastatin Calcium 10 MG TABLET PO (20:12)
[2024-11-09] MEDS: Simethicone 80 MG TAB.CHEW PO (20:14)
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
[2024-11-10] MEDS: Cholestyramine (With Sugar) 4 GM POWD.PACK PO (08:35)
[2024-11-10] MEDS: OLANZapine 5 MG TABLET PO (08:35)
[2024-11-10] MEDS: carBAMazepine 100 MG TAB.CHEW 200 MG PO (08:35)
[2024-11-10] MEDS: Fluticasone/Vilanterol 100/25 BLST.W.DEV 1 PUFF INHALE (08:35)
[2024-11-10] MEDS: Fenofibrate 54 MG TABLET PO (08:35)
== END 2024-11-10 11:37 | disposition home or self-care (01) | DRG 885 ==
LOC: HO.PM5 10-26 09:57 → HO.PGERI 11-08 10:06 → HO.PM5 02-17 10:02
PROVIDERS: Social Worker; Admitting Provider Psychiatry & Neurology Psychiatry; Visit Provider Psychiatry & Neurology Psychiatry
DX: F25.9 Schizoaffective disorder, unspecified (principal); I12.9 Hypertensive chronic kidney disease with stage 1 through stage 4 chronic kidney disease, or unspecified chronic kidney disease; J45.909 Unspecified asthma, uncomplicated; N18.30 Chronic kidney disease, stage 3 unspecified; E78.5 Hyperlipidemia, unspecified; G31.84 Mild cognitive impairment of uncertain or unknown etiology; Z79.51 Long term (current) use of inhaled steroids; Z79.899 Other long term (current) drug therapy
CPT/HCPCS: 36415; 80053; 80061; 80156; 82140; 82607; 82746; 83036; 84443; 85025; 86704; 86706; 86709; 86803; 87086; 87340